=== PATIENT | male | born 1975 | race Caucasian/White ===

== ENCOUNTER 2017-10-13 00:12 | Emergency (ER) | payer OTHER ==
[2017-10-13] MEDS: IPRATROPIUM (NEB) 0.5 MG/2.5 ML AMP INH (04:14)
[2017-10-13] MEDS: ALBUTEROL 0.083% (NEB) 2.5 MG/3 ML AMP INH (04:14)
== END 2017-10-13 05:13 | disposition home or self-care (01) ==
LOC: E/R 00:12
DX: J44.9 Chronic obstructive pulmonary disease, unspecified (principal); I25.10 Atherosclerotic heart disease of native coronary artery without angina pectoris
CPT/HCPCS: 94664; 99283-25

== ENCOUNTER 2017-10-13 20:43 | Emergency (ER) | payer OTHER ==
[2017-10-14] MEDS: ALBUTEROL 0.5% (NEB) 2.5 MG/0.5 ML AMP INH (00:10)
[2017-10-14] MEDS: ALBUTEROL HFA 8 GM INHALER INH (01:46)
== END 2017-10-14 01:48 | disposition home or self-care (01) ==
LOC: E/R 20:43
DX: J45.901 Unspecified asthma with (acute) exacerbation (principal); F41.9 Anxiety disorder, unspecified; J44.9 Chronic obstructive pulmonary disease, unspecified; I25.10 Atherosclerotic heart disease of native coronary artery without angina pectoris
CPT/HCPCS: 94644; 99283-25

== ENCOUNTER 2017-10-14 12:20 | Emergency (ER) | payer OTHER ==
[2017-10-14] MEDS ORDERED: ALBUTEROL HFA 8 GM INHALER INH (15:24)
== END 2017-10-14 15:44 | disposition home or self-care (01) ==
LOC: FTE 12:20 → E/R 15:44
DX: R06.2 Wheezing (principal); J44.9 Chronic obstructive pulmonary disease, unspecified; I25.10 Atherosclerotic heart disease of native coronary artery without angina pectoris
CPT/HCPCS: 99282; Z7502

== ENCOUNTER 2017-10-14 21:58 | Emergency (ER) | payer OTHER ==
[2017-10-14] MEDS: ALBUTEROL 0.083% (NEB) 2.5 MG/3 ML AMP HHN (23:53)
== END 2017-10-15 01:30 | disposition home or self-care (01) ==
LOC: E/R 21:58
DX: F41.9 Anxiety disorder, unspecified (principal); I25.10 Atherosclerotic heart disease of native coronary artery without angina pectoris; J44.9 Chronic obstructive pulmonary disease, unspecified
CPT/HCPCS: 94664; 99283-25

== ENCOUNTER 2017-10-15 19:13 | Emergency (ER) | payer OTHER ==
[2017-10-15] MEDS: predniSONE 20 MG TAB PO (23:35)
[2017-10-15] MEDS: IPRATROPIUM (NEB) 0.5 MG/2.5 ML AMP NEB (23:53)
[2017-10-15] MEDS: LEVALBUTEROL (NEB) 1.25 MG/0.5 ML AMP INH (23:53)
[2017-10-16] MEDS: LEVALBUTEROL (NEB) 1.25 MG/0.5 ML AMP INH (01:49)
[2017-10-16] MEDS: IPRATROPIUM (NEB) 0.5 MG/2.5 ML AMP NEB (01:49)
== END 2017-10-16 02:10 | disposition home or self-care (01) ==
LOC: E/R 10-16 02:10
DX: J45.901 Unspecified asthma with (acute) exacerbation (principal); I25.10 Atherosclerotic heart disease of native coronary artery without angina pectoris
CPT/HCPCS: 94640; 94664; 99284-25

== ENCOUNTER 2017-10-16 13:32 | Emergency (ER) | payer OTHER ==
[2017-10-16] MEDS: predniSONE 20 MG TAB PO (14:41)
[2017-10-16] MEDS: LEVALBUTEROL (NEB) 1.25 MG/0.5 ML AMP HHN (14:48)
[2017-10-16] MEDS: IPRATROPIUM (NEB) 0.5 MG/2.5 ML AMP HHN (14:48)
== END 2017-10-16 15:38 | disposition home or self-care (01) ==
LOC: E/R 13:32
DX: J45.901 Unspecified asthma with (acute) exacerbation (principal); J44.9 Chronic obstructive pulmonary disease, unspecified; I25.10 Atherosclerotic heart disease of native coronary artery without angina pectoris
CPT/HCPCS: 94664; 99283-25

== ENCOUNTER 2017-10-16 21:25 | Emergency (ER) | payer OTHER ==
[2017-10-17] MEDS: DEXAMETHASONE 4 MG TAB PO (01:27)
[2017-10-17] MEDS: ALBUTEROL 0.083% (NEB) 2.5 MG/3 ML AMP HHN (01:45)
[2017-10-17] MEDS: IPRATROPIUM (NEB) 0.5 MG/2.5 ML AMP HHN (01:45)
== END 2017-10-17 02:50 | disposition home or self-care (01) ==
LOC: E/R 21:25
DX: J45.901 Unspecified asthma with (acute) exacerbation (principal); I25.10 Atherosclerotic heart disease of native coronary artery without angina pectoris
CPT/HCPCS: 94644; 99284-25

== ENCOUNTER 2017-10-17 03:48 | Emergency (ER) | payer OTHER | END 2017-10-17 05:32 | disposition home or self-care (01) | LOC: E/R 03:48 | DX: R42 Dizziness and giddiness (principal); J45.909 Unspecified asthma, uncomplicated; I25.10 Atherosclerotic heart disease of native coronary artery without angina pectoris | CPT/HCPCS: 93005; 99284-25 ==

== ENCOUNTER 2017-10-17 18:26 | Inpatient (IN) | payer OTHER ==
[2017-10-17] MEDS: METHYLPREDNISOLONE 125 MG INJ IV (19:40)
[2017-10-17 20:00] LABS: ADD MAN DIFF? NO
[2017-10-17 20:05] LABS: BASOPHILS % 0.3 % (0.0-2.0); HEMATOCRIT 45.6 % (42.0-52.0); HEMOGLOBIN 16.3 g/dl (14.0-18.0); LYMPHOCYTES # 0.6 10^3/ul (0.8-2.9); LYMPHOCYTES % 4.3 % (15.0-51.0); MEAN CORPUSCULAR HGB CONC 35.7 g/dl (32.0-37.0); MEAN PLATELET VOLUME 9.1 fl (7.4-10.4); MONOCYTE # 1.2 10^3/ul (0.3-0.9); MONOCYTES % 8.1 % (0.0-11.0); NEUTROPHIL # 12.8 10^3/ul (1.6-7.5); NEUTROPHILS % 86.5 % (39.0-77.0); PLATELET COUNT 164 10^3/UL (140-415); RED BLOOD COUNT 5.43 10^6/ul (4.70-6.10)
[2017-10-17 20:05] LABS: WHITE BLOOD COUNT 14.8 10^3/ul (4.8-10.8)
[2017-10-17] MEDS: IPRATROPIUM (NEB) 0.5 MG/2.5 ML AMP INH (20:20)
[2017-10-17] MEDS: ALBUTEROL 0.5% (NEB) 2.5 MG/0.5 ML AMP INH (20:21)
[2017-10-17 20:23] LABS: ALANINE AMINOTRANSFERASE 48 IU/L (13-69); ALBUMIN 4.8 g/dl (3.3-4.9); ALBUMIN/GLOBULIN RATIO 1.65; ALKALINE PHOSPHATASE 71 IU/L (42-121); ANION GAP 20 (8-16); ASPARTATE AMINO TRANSFERASE 25 IU/L (15-46); BILIRUBIN,INDIRECT 0.3 mg/dl (0-1.1); BILIRUBIN,TOTAL 0.3 mg/dl (0.2-1.3); BLOOD UREA NITROGEN 23 mg/dl (7-20); CALCIUM 9.8 mg/dl (8.4-10.2); CARBON DIOXIDE 24 mmol/L (21-31); CHLORIDE 104 mmol/L (97-110); CREATININE 0.87 mg/dl (0.61-1.24); GLUCOSE 139 mg/dl (70-220); LIPASE 29 U/L (23-300); POTASSIUM 3.7 mmol/L (3.5-5.1); SODIUM 144 mmol/L (135-144); TOTAL PROTEIN 7.7 g/dl (6.1-8.1)
[2017-10-17 20:38] LABS: TROPONIN-I < 0.012 ng/ml (0.00-0.12)
[2017-10-17] MEDS: MAGNESIUM SULFATE 2 GM/50 ML 50 ML IVPB (21:33)
[2017-10-17] MEDS: SOD CHLORIDE 0.9% 1,000 ML IV (21:34)
[2017-10-17] MEDS: ASPIRIN 81 MG TAB PO (21:37)
[2017-10-17] MEDS ORDERED: morphine 2 MG INJ IV (23:30)
[2017-10-17] MEDS ORDERED: IPRATROPIUM (NEB) 0.5 MG/2.5 ML AMP NEB (23:30)
[2017-10-17] MEDS ORDERED: NACL 0.9% 3 ML SYG IV (23:30)
[2017-10-17] MEDS ORDERED: ACETAMINOPHEN 325 MG TAB PO (23:30)
[2017-10-17] MEDS ORDERED: NON-FORMULARY/PATIENT OWN MED (Salmeterol Xinaf-Fluticasone* (Advair HFA*) 2 INH) IH (23:30)
[2017-10-17] MEDS ORDERED: LORAZEPAM 0.5 MG TAB PO (23:30)
[2017-10-17] MEDS ORDERED: LEVALBUTEROL (NEB) 0.63 MG/3 ML AMP HHN (23:30)
[2017-10-17] MEDS ORDERED: ONDANSETRON 4 MG INJ IV (23:30)
[2017-10-18] MEDS: METHYLPREDNISOLONE 125 MG INJ IV ×2 (05:28→13:55)
[2017-10-18] MEDS: SALMETEROL/FLUTICASONE 250/50 INHA INH (08:26)
[2017-10-18] MEDS: ENOXAPARIN 40 MG/0.4 ML SYG SC (08:28)
[2017-10-18 08:38] LABS: ADD MAN DIFF? NO
[2017-10-18 08:42] LABS: ABNORMAL IP MESSAGE 1; BASOPHILS % 0.1 % (0.0-2.0); HEMATOCRIT 42.3 % (42.0-52.0); HEMOGLOBIN 14.9 g/dl (14.0-18.0); LYMPHOCYTES # 0.4 10^3/ul (0.8-2.9); LYMPHOCYTES % 4.1 % (15.0-51.0); MEAN CORPUSCULAR HEMOGLOBIN 30.6 pg (29.0-33.0); MEAN CORPUSCULAR HGB CONC 35.2 g/dl (32.0-37.0); MEAN CORPUSCULAR VOLUME 86.9 fl (82.0-101.0); MEAN PLATELET VOLUME 9.4 fl (7.4-10.4); MONOCYTE # 0.1 10^3/ul (0.3-0.9); NEUTROPHIL # 9.4 10^3/ul (1.6-7.5); NEUTROPHILS % 93.9 % (39.0-77.0); PLATELET COUNT 141 10^3/UL (140-415); POSITIVE DIFF @See below; RED BLOOD COUNT 4.87 10^6/ul (4.70-6.10); RED CELL DISTRIBUTION WIDTH 13.2 % (11.5-14.5)
[2017-10-18 08:42] LABS: WHITE BLOOD COUNT 10.1 10^3/ul (4.8-10.8)
[2017-10-18 09:01] LABS: ALANINE AMINOTRANSFERASE 43 IU/L (13-69); ALBUMIN/GLOBULIN RATIO 1.42; ALKALINE PHOSPHATASE 51 IU/L (42-121); ANION GAP 19 (8-16); ASPARTATE AMINO TRANSFERASE 22 IU/L (15-46); BILIRUBIN,INDIRECT 0.2 mg/dl (0-1.1); BILIRUBIN,TOTAL 0.2 mg/dl (0.2-1.3); BLOOD UREA NITROGEN 16 mg/dl (7-20); CALCIUM 8.9 mg/dl (8.4-10.2); CARBON DIOXIDE 24 mmol/L (21-31); CHLORIDE 104 mmol/L (97-110); CREATININE 0.75 mg/dl (0.61-1.24); GLUCOSE 186 mg/dl (70-220); MAGNESIUM 2.2 mg/dl (1.7-2.5); POTASSIUM 3.8 mmol/L (3.5-5.1); SODIUM 143 mmol/L (135-144); TOTAL PROTEIN 6.8 g/dl (6.1-8.1)
== END 2017-10-18 14:51 | disposition home or self-care (01) | DRG 203 ==
LOC: E/R 18:26 → MS4 20:11
DX: J45.901 Unspecified asthma with (acute) exacerbation (principal); F79 Unspecified intellectual disabilities
CPT/HCPCS: 36415; 71045; 80053; 83690; 83735; 84484; 85025; 87400; 93005; 94644; 96374; 96375; 99291-25

== ENCOUNTER 2017-11-17 19:45 | Emergency (ER) | payer OTHER ==
[2017-11-17] MEDS: ALBUTEROL 0.083% (NEB) 2.5 MG/3 ML AMP NEB (21:56)
[2017-11-17] MEDS: IPRATROPIUM (NEB) 0.5 MG/2.5 ML AMP NEB (21:56)
[2017-11-17] MEDS: DEXAMETHASONE 10 MG/ML 1 ML INJ IM (22:15)
[2017-11-17] MEDS: ALBUTEROL HFA 8 GM INHALER INH (22:39)
== END 2017-11-17 22:40 | disposition home or self-care (01) ==
LOC: E/R 22:40
DX: J45.41 Moderate persistent asthma with (acute) exacerbation (principal); I25.10 Atherosclerotic heart disease of native coronary artery without angina pectoris
CPT/HCPCS: 94664; 96372; 99284-25

== ENCOUNTER 2017-11-23 20:19 | Emergency (ER) | payer OTHER ==
[2017-11-23] MEDS: LEVALBUTEROL (NEB) 1.25 MG/0.5 ML AMP INH (23:43)
[2017-11-23] MEDS: IPRATROPIUM (NEB) 0.5 MG/2.5 ML AMP INH (23:43)
[2017-11-23] MEDS: METHYLPREDNISOLONE 125 MG INJ IV (23:48)
[2017-11-23] MEDS: SOD CHLORIDE 0.9% 1,000 ML IV (23:48)
== END 2017-11-24 01:13 | disposition home or self-care (01) ==
LOC: E/R 11-24 01:13
DX: J45.901 Unspecified asthma with (acute) exacerbation (principal); I25.10 Atherosclerotic heart disease of native coronary artery without angina pectoris; F88 Other disorders of psychological development
CPT/HCPCS: 94644; 96374; 99284-25

== ENCOUNTER 2017-11-26 21:33 | Emergency (ER) | payer OTHER ==
[2017-11-26] MEDS: IPRATROPIUM (NEB) 0.5 MG/2.5 ML AMP NEB (22:50)
[2017-11-26] MEDS: ALBUTEROL 0.083% (NEB) 2.5 MG/3 ML AMP NEB (22:50)
== END 2017-11-27 00:27 | disposition home or self-care (01) ==
LOC: E/R 11-27 00:27
DX: J45.901 Unspecified asthma with (acute) exacerbation (principal); I25.10 Atherosclerotic heart disease of native coronary artery without angina pectoris
CPT/HCPCS: 94664; 99283-25

== ENCOUNTER 2017-11-28 22:24 | Emergency (ER) | payer OTHER ==
[2017-11-29] MEDS: ALBUTEROL 0.083% (NEB) 2.5 MG/3 ML AMP NEB (01:54)
[2017-11-29] MEDS: IPRATROPIUM (NEB) 0.5 MG/2.5 ML AMP NEB (01:55)
== END 2017-11-29 02:52 | disposition home or self-care (01) ==
LOC: E/R 22:24
DX: J45.901 Unspecified asthma with (acute) exacerbation (principal); F79 Unspecified intellectual disabilities; I25.10 Atherosclerotic heart disease of native coronary artery without angina pectoris
CPT/HCPCS: 94664; 99284-25

== ENCOUNTER 2017-11-29 23:39 | Emergency (ER) | payer OTHER ==
[2017-11-30] MEDS: ALBUTEROL 0.5% (NEB) 2.5 MG/0.5 ML AMP INH (01:44)
[2017-11-30] MEDS ORDERED: ALBUTEROL HFA 8 GM INHALER INH (05:00)
== END 2017-11-30 02:57 | disposition home or self-care (01) ==
LOC: E/R 23:39
DX: J45.41 Moderate persistent asthma with (acute) exacerbation (principal); I25.10 Atherosclerotic heart disease of native coronary artery without angina pectoris
CPT/HCPCS: 94644; 99283

== ENCOUNTER 2017-12-01 21:13 | Emergency (ER) | payer OTHER ==
[2017-12-02] MEDS: ALBUTEROL 0.083% (NEB) 2.5 MG/3 ML AMP HHN (00:11)
[2017-12-02] MEDS: IPRATROPIUM (NEB) 0.5 MG/2.5 ML AMP HHN (00:11)
[2017-12-02] MEDS: DEXAMETHASONE 10 MG/ML 1 ML INJ PO (00:50)
== END 2017-12-02 01:05 | disposition home or self-care (01) ==
LOC: E/R 21:13
DX: J45.901 Unspecified asthma with (acute) exacerbation (principal); I25.10 Atherosclerotic heart disease of native coronary artery without angina pectoris
CPT/HCPCS: 94664; 99283-25

== ENCOUNTER 2017-12-02 21:48 | Emergency (ER) | payer OTHER ==
[2017-12-02] MEDS: ALBUTEROL 0.5% (NEB) 2.5 MG/0.5 ML AMP INH (22:33)
== END 2017-12-02 23:44 | disposition home or self-care (01) ==
LOC: E/R 21:48
DX: J45.901 Unspecified asthma with (acute) exacerbation (principal); I25.10 Atherosclerotic heart disease of native coronary artery without angina pectoris
CPT/HCPCS: 94664; 99283-25

== ENCOUNTER 2017-12-03 21:36 | Emergency (ER) | payer OTHER ==
[2017-12-03] MEDS: IPRATROPIUM (NEB) 0.5 MG/2.5 ML AMP NEB (22:45)
[2017-12-03] MEDS: ALBUTEROL 0.083% (NEB) 2.5 MG/3 ML AMP NEB (22:45)
[2017-12-04] MEDS: ALBUTEROL HFA 8 GM INHALER INH (00:32)
== END 2017-12-04 00:33 | disposition home or self-care (01) ==
LOC: E/R 12-04 00:33
DX: R06.02 Shortness of breath (principal); I25.10 Atherosclerotic heart disease of native coronary artery without angina pectoris; J45.909 Unspecified asthma, uncomplicated
CPT/HCPCS: 94664; 99284-25

== ENCOUNTER 2017-12-04 22:11 | Emergency (ER) | payer OTHER ==
[2017-12-04] MEDS: ALBUTEROL 0.083% (NEB) 2.5 MG/3 ML AMP NEB (22:52)
[2017-12-04] MEDS: IPRATROPIUM (NEB) 0.5 MG/2.5 ML AMP NEB (22:52)
== END 2017-12-05 00:19 | disposition home or self-care (01) ==
LOC: E/R 12-05 00:19
DX: J45.901 Unspecified asthma with (acute) exacerbation (principal)
CPT/HCPCS: 94664; 99283-25

== ENCOUNTER 2017-12-05 22:03 | Emergency (ER) | payer OTHER ==
[2017-12-05] MEDS: ALBUTEROL 0.083% (NEB) 2.5 MG/3 ML AMP NEB (22:45)
[2017-12-05] MEDS: IPRATROPIUM (NEB) 0.5 MG/2.5 ML AMP NEB (22:45)
== END 2017-12-05 23:18 | disposition home or self-care (01) ==
LOC: E/R 22:03
DX: J45.901 Unspecified asthma with (acute) exacerbation (principal); R40.2252 Coma scale, best verbal response, oriented, at arrival to emergency department
CPT/HCPCS: 94664; 99283-25

== ENCOUNTER 2017-12-06 15:41 | Emergency (ER) | payer OTHER ==
[2017-12-06] MEDS: predniSONE 20 MG TAB PO (21:07)
[2017-12-06] MEDS: ALBUTEROL 0.5% (NEB) 2.5 MG/0.5 ML AMP INH (21:19)
== END 2017-12-06 22:45 | disposition home or self-care (01) ==
LOC: E/R 15:41
DX: J45.21 Mild intermittent asthma with (acute) exacerbation (principal)
CPT/HCPCS: 94644; 99284-25

== ENCOUNTER 2017-12-07 21:25 | Emergency (ER) | payer OTHER ==
[2017-12-07] MEDS: SOD CHLORIDE 0.9% 1,000 ML IV (23:27)
[2017-12-07] MEDS: METHYLPREDNISOLONE 125 MG INJ IV (23:27)
[2017-12-07] MEDS: LEVALBUTEROL (NEB) 1.25 MG/0.5 ML AMP INH (23:37)
[2017-12-07] MEDS: IPRATROPIUM (NEB) 0.5 MG/2.5 ML AMP INH (23:37)
== END 2017-12-08 02:30 | disposition home or self-care (01) ==
LOC: E/R 12-08 02:30
DX: J45.901 Unspecified asthma with (acute) exacerbation (principal)
CPT/HCPCS: 94644; 96374; 99284-25

== ENCOUNTER 2017-12-12 11:02 | Emergency (ER) | payer OTHER ==
[2017-12-12] MEDS ORDERED: ALBUTEROL 0.083% (NEB) 2.5 MG/3 ML AMP HHN (11:36)
== END 2017-12-12 14:11 | disposition home or self-care (01) ==
LOC: E/R 11:02
DX: J45.901 Unspecified asthma with (acute) exacerbation (principal)
CPT/HCPCS: 94664; 99283

== ENCOUNTER 2017-12-12 22:07 | Emergency (ER) | payer OTHER ==
[2017-12-13] MEDS: IPRATROPIUM (NEB) 0.5 MG/2.5 ML AMP NEB (02:46)
[2017-12-13] MEDS: ALBUTEROL 0.083% (NEB) 2.5 MG/3 ML AMP NEB (02:47)
[2017-12-13] MEDS: ALBUTEROL HFA 8 GM INHALER INH (04:01)
== END 2017-12-13 04:02 | disposition home or self-care (01) ==
LOC: E/R 22:07
DX: J45.31 Mild persistent asthma with (acute) exacerbation (principal)
CPT/HCPCS: 94664; 99284-25

== ENCOUNTER 2017-12-13 23:37 | Emergency (ER) | payer OTHER ==
[2017-12-14] MEDS: ALBUTEROL 0.083% (NEB) 2.5 MG/3 ML AMP HHN (03:20)
== END 2017-12-14 03:52 | disposition home or self-care (01) ==
LOC: E/R 23:37
DX: J45.901 Unspecified asthma with (acute) exacerbation (principal)
CPT/HCPCS: 94664; 99283-25

== ENCOUNTER 2017-12-15 01:24 | Emergency (ER) | payer OTHER ==
[2017-12-15] MEDS: ALBUTEROL 0.083% (NEB) 2.5 MG/3 ML AMP NEB (01:46)
== END 2017-12-15 02:08 | disposition home or self-care (01) ==
LOC: E/R 01:24
DX: J45.901 Unspecified asthma with (acute) exacerbation (principal)
CPT/HCPCS: 94664; 99283-25

== ENCOUNTER 2017-12-15 20:34 | Emergency (ER) | payer OTHER ==
[2017-12-15] MEDS: ALBUTEROL 0.083% (NEB) 2.5 MG/3 ML AMP NEB (21:16)
== END 2017-12-15 21:45 | disposition home or self-care (01) ==
LOC: E/R 20:34
DX: J45.901 Unspecified asthma with (acute) exacerbation (principal)
CPT/HCPCS: 94664; 99283-25

== ENCOUNTER 2017-12-16 22:32 | Emergency (ER) | payer OTHER ==
[2017-12-16] MEDS: IPRATROPIUM (NEB) 0.5 MG/2.5 ML AMP INH (23:53)
[2017-12-16] MEDS: ALBUTEROL 0.5% (NEB) 2.5 MG/0.5 ML AMP INH (23:53)
[2017-12-17] MEDS ORDERED: DEXAMETHASONE 10 MG/ML 1 ML INJ IV
[2017-12-17] MEDS: DEXAMETHASONE 4 MG TAB PO (00:24)
== END 2017-12-17 01:00 | disposition home or self-care (01) ==
LOC: E/R 22:32
DX: J45.901 Unspecified asthma with (acute) exacerbation (principal); J44.9 Chronic obstructive pulmonary disease, unspecified
CPT/HCPCS: 94644; 99283-25

== ENCOUNTER 2017-12-17 13:53 | Emergency (ER) | payer OTHER ==
[2017-12-17] MEDS: IPRATROPIUM (NEB) 0.5 MG/2.5 ML AMP NEB (14:56)
[2017-12-17] MEDS: ALBUTEROL 0.083% (NEB) 2.5 MG/3 ML AMP NEB (14:56)
== END 2017-12-17 15:37 | disposition home or self-care (01) ==
LOC: E/R 13:53
DX: R06.02 Shortness of breath (principal); J45.901 Unspecified asthma with (acute) exacerbation
CPT/HCPCS: 94664; 99283-25

== ENCOUNTER 2017-12-18 01:19 | Emergency (ER) | payer OTHER ==
[2017-12-18] MEDS: IPRATROPIUM (NEB) 0.5 MG/2.5 ML AMP NEB (03:00)
[2017-12-18] MEDS: ALBUTEROL 0.083% (NEB) 2.5 MG/3 ML AMP NEB (03:00)
== END 2017-12-18 03:30 | disposition home or self-care (01) ==
LOC: E/R 01:19
DX: J45.901 Unspecified asthma with (acute) exacerbation (principal)
CPT/HCPCS: 94664; 99283-25

== ENCOUNTER 2017-12-18 14:13 | Emergency (ER) | payer OTHER ==
[2017-12-18] MEDS: LEVALBUTEROL (NEB) 1.25 MG/0.5 ML AMP INH (18:36)
[2017-12-18] MEDS: IPRATROPIUM (NEB) 0.5 MG/2.5 ML AMP INH (18:36)
[2017-12-18] MEDS: METHYLPREDNISOLONE 125 MG INJ IV (19:11)
[2017-12-18] MEDS: SOD CHLORIDE 0.9% 1,000 ML IV (19:13)
== END 2017-12-18 20:12 | disposition home or self-care (01) ==
LOC: E/R 14:13
DX: J45.901 Unspecified asthma with (acute) exacerbation (principal)
CPT/HCPCS: 94644; 96374; 99284-25

== ENCOUNTER → 2017-12-19 | Emergency (ER) | payer OTHER ==
[2017-12-19] MEDS: IPRATROPIUM (NEB) 0.5 MG/2.5 ML AMP NEB (23:45)
[2017-12-19] MEDS: ALBUTEROL 0.083% (NEB) 2.5 MG/3 ML AMP NEB (23:45)
[2017-12-20] MEDS: ALBUTEROL HFA 8 GM INHALER INH (01:00)
== END | disposition home or self-care (01) ==
LOC: E/R 21:25
DX: J45.901 Unspecified asthma with (acute) exacerbation (principal)
CPT/HCPCS: 94664; 99283-25

== ENCOUNTER 2017-12-20 22:39 | Emergency (ER) | payer OTHER ==
[2017-12-20] MEDS: ALBUTEROL 0.083% (NEB) 2.5 MG/3 ML AMP HHN (00:05)
[2017-12-21] MEDS: IPRATROPIUM (NEB) 0.5 MG/2.5 ML AMP HHN (00:05)
[2017-12-21] MEDS: DEXAMETHASONE 4 MG TAB PO (01:06)
== END 2017-12-21 01:08 | disposition home or self-care (01) ==
LOC: E/R 12-21 01:08
DX: J45.901 Unspecified asthma with (acute) exacerbation (principal)
CPT/HCPCS: 94664; 99284-25

== ENCOUNTER 2017-12-29 17:48 | Emergency (ER) | payer OTHER ==
[2017-12-29] MEDS: IPRATROPIUM (NEB) 0.5 MG/2.5 ML AMP HHN (19:43)
[2017-12-29] MEDS: ALBUTEROL 0.083% (NEB) 2.5 MG/3 ML AMP HHN (19:43)
[2017-12-29] MEDS: DEXAMETHASONE 4 MG TAB PO (20:13)
== END 2017-12-29 20:33 | disposition home or self-care (01) ==
LOC: E/R 17:48
DX: J45.901 Unspecified asthma with (acute) exacerbation (principal)
CPT/HCPCS: 94664; 99283-25

== ENCOUNTER 2017-12-30 21:43 | Emergency (ER) | payer OTHER | END 2017-12-31 00:35 | disposition home or self-care (01) | LOC: E/R 12-31 00:35 | DX: J45.909 Unspecified asthma, uncomplicated (principal); Z73.2 Lack of relaxation and leisure | CPT/HCPCS: 99282; Z7502 ==

== ENCOUNTER 2017-12-31 04:54 | Emergency (ER) | payer OTHER ==
[2017-12-31] MEDS: IPRATROPIUM (NEB) 0.5 MG/2.5 ML AMP HHN (06:10)
[2017-12-31] MEDS: ALBUTEROL 0.083% (NEB) 2.5 MG/3 ML AMP HHN (06:10)
[2017-12-31] MEDS: DEXAMETHASONE 4 MG TAB PO (06:25)
[2017-12-31] MEDS ORDERED: ALBUTEROL HFA 8 GM INHALER INH (09:00)
== END 2017-12-31 07:32 | disposition home or self-care (01) ==
LOC: E/R 04:54
DX: J45.901 Unspecified asthma with (acute) exacerbation (principal)
CPT/HCPCS: 94664; 99283-25

== ENCOUNTER 2018-01-01 20:57 | Emergency (ER) | payer OTHER ==
[2018-01-01] MEDS: IPRATROPIUM (NEB) 0.5 MG/2.5 ML AMP NEB (22:55)
[2018-01-01] MEDS: ALBUTEROL 0.083% (NEB) 2.5 MG/3 ML AMP NEB (22:56)
== END 2018-01-01 23:32 | disposition home or self-care (01) ==
LOC: E/R 20:57
DX: J45.31 Mild persistent asthma with (acute) exacerbation (principal)
CPT/HCPCS: 94664; 99284-25

== ENCOUNTER 2018-01-02 21:10 | Emergency (ER) | payer OTHER ==
[2018-01-03] MEDS: IPRATROPIUM (NEB) 0.5 MG/2.5 ML AMP NEB (01:52)
[2018-01-03] MEDS: ALBUTEROL 0.083% (NEB) 2.5 MG/3 ML AMP NEB (01:52)
[2018-01-03] MEDS ORDERED: ALBUTEROL HFA 8 GM INHALER INH (05:00)
== END 2018-01-03 02:15 | disposition home or self-care (01) ==
LOC: E/R 21:10
DX: J45.901 Unspecified asthma with (acute) exacerbation (principal)
CPT/HCPCS: 94664; 99283-25

== ENCOUNTER 2018-01-03 23:19 | Emergency (ER) | payer OTHER ==
[2018-01-03] MEDS: ALBUTEROL 0.083% (NEB) 2.5 MG/3 ML AMP HHN (23:57)
== END 2018-01-04 00:05 | disposition home or self-care (01) ==
LOC: E/R 01-04 00:05
DX: R06.02 Shortness of breath (principal); J45.901 Unspecified asthma with (acute) exacerbation
CPT/HCPCS: 94664; 99283-25

== ENCOUNTER 2018-01-12 23:11 | Emergency (ER) | payer OTHER ==
[2018-01-13] MEDS: IPRATROPIUM (NEB) 0.5 MG/2.5 ML AMP NEB (00:22)
[2018-01-13] MEDS: predniSONE 20 MG TAB PO (00:23)
[2018-01-13] MEDS: LEVALBUTEROL (NEB) 1.25 MG/0.5 ML AMP INH (00:23)
== END 2018-01-12 23:41 | disposition home or self-care (01) ==
LOC: E/R 23:11
DX: J45.901 Unspecified asthma with (acute) exacerbation (principal)
CPT/HCPCS: 99284-25; Z7502

== ENCOUNTER → 2018-01-12 | Emergency (ER) | payer SELFPAY, OTHER | END | disposition left against medical advice (07) | LOC: E/R 01:48 | DX: Z53.21 Procedure and treatment not carried out due to patient leaving prior to being seen by health care provider (principal) ==

== ENCOUNTER 2018-01-15 23:45 | Emergency (ER) | payer OTHER ==
[2018-01-16] MEDS: ALBUTEROL 0.083% (NEB) 2.5 MG/3 ML AMP NEB (03:49)
[2018-01-16] MEDS: IPRATROPIUM (NEB) 0.5 MG/2.5 ML AMP NEB (03:49)
[2018-01-16] MEDS: ALBUTEROL HFA 8 GM INHALER INH (04:31)
== END 2018-01-16 04:39 | disposition home or self-care (01) ==
LOC: E/R 23:45
DX: J45.901 Unspecified asthma with (acute) exacerbation (principal)
CPT/HCPCS: 94664; 99284-25

== ENCOUNTER 2018-01-17 00:24 | Emergency (ER) | payer OTHER ==
[2018-01-17] MEDS: ALBUTEROL 0.083% (NEB) 2.5 MG/3 ML AMP NEB (03:30)
[2018-01-17] MEDS: IPRATROPIUM (NEB) 0.5 MG/2.5 ML AMP NEB (03:30)
== END 2018-01-17 04:11 | disposition home or self-care (01) ==
LOC: FTE 00:24 → E/R 04:11
DX: J45.901 Unspecified asthma with (acute) exacerbation (principal)
CPT/HCPCS: 94664; 99283-25

== ENCOUNTER 2018-01-21 22:27 | Emergency (ER) | payer OTHER ==
[2018-01-21] MEDS: IPRATROPIUM (NEB) 0.5 MG/2.5 ML AMP NEB (22:46)
[2018-01-21] MEDS: ALBUTEROL 0.083% (NEB) 2.5 MG/3 ML AMP NEB (22:46)
[2018-01-21] MEDS: ALBUTEROL HFA 8 GM INHALER INH (23:23)
[2018-01-22] MEDS ORDERED: ALBUTEROL HFA 8 GM INHALER INH (01:00)
== END 2018-01-21 23:26 | disposition home or self-care (01) ==
LOC: E/R 22:27
DX: J45.51 Severe persistent asthma with (acute) exacerbation (principal); R40.2142 Coma scale, eyes open, spontaneous, at arrival to emergency department; R40.2252 Coma scale, best verbal response, oriented, at arrival to emergency department; R40.2362 Coma scale, best motor response, obeys commands, at arrival to emergency department
CPT/HCPCS: 94664; 99283-25

== ENCOUNTER 2018-01-27 11:20 | Emergency (ER) | payer OTHER ==
[2018-01-27] MEDS: ALBUTEROL 0.083% (NEB) 2.5 MG/3 ML AMP HHN (11:46)
[2018-01-27] MEDS: IPRATROPIUM (NEB) 0.5 MG/2.5 ML AMP HHN (11:46)
== END 2018-01-27 12:33 | disposition home or self-care (01) ==
LOC: FTE 12:33
DX: J45.901 Unspecified asthma with (acute) exacerbation (principal)
CPT/HCPCS: 93005; 94664; 99283-25

== ENCOUNTER 2018-01-28 00:22 | Emergency (ER) | payer OTHER ==
[2018-01-28] MEDS: DEXAMETHASONE 10 MG/ML 1 ML INJ IV (01:43)
[2018-01-28] MEDS: ALBUTEROL 0.5% (NEB) 2.5 MG/0.5 ML AMP INH (01:44)
[2018-01-28] MEDS: IPRATROPIUM (NEB) 0.5 MG/2.5 ML AMP INH (01:44)
[2018-01-28] MEDS ORDERED: ALBUTEROL HFA 8 GM INHALER INH (02:00)
== END 2018-01-28 04:19 | disposition home or self-care (01) ==
LOC: E/R 00:22
DX: J45.21 Mild intermittent asthma with (acute) exacerbation (principal)
CPT/HCPCS: 94644; 96374; 99284-25

== ENCOUNTER 2018-02-03 12:45 | Emergency (ER) | payer OTHER ==
[2018-02-03] MEDS: ALBUTEROL 0.083% (NEB) 2.5 MG/3 ML AMP NEB (13:39)
[2018-02-03] MEDS: IPRATROPIUM (NEB) 0.5 MG/2.5 ML AMP NEB (13:39)
== END 2018-02-03 14:06 | disposition home or self-care (01) ==
LOC: FTE 12:45
DX: J45.901 Unspecified asthma with (acute) exacerbation (principal)
CPT/HCPCS: 94664; 99283-25

== ENCOUNTER 2018-02-04 05:11 | Emergency (ER) | payer OTHER ==
[2018-02-04] MEDS ORDERED: DEXAMETHASONE 4 MG TAB PO (05:30)
[2018-02-04] MEDS: IPRATROPIUM (NEB) 0.5 MG/2.5 ML AMP HHN (05:32)
[2018-02-04] MEDS: ALBUTEROL 0.083% (NEB) 2.5 MG/3 ML AMP HHN (05:32)
== END 2018-02-04 06:23 | disposition home or self-care (01) ==
LOC: E/R 05:11
DX: J45.901 Unspecified asthma with (acute) exacerbation (principal)
CPT/HCPCS: 94664; 99283-25

== ENCOUNTER 2018-02-04 19:43 | Emergency (ER) | payer OTHER ==
[2018-02-04] MEDS: IPRATROPIUM (NEB) 0.5 MG/2.5 ML AMP NEB (20:15)
[2018-02-04] MEDS: ALBUTEROL 0.083% (NEB) 2.5 MG/3 ML AMP NEB (20:15)
[2018-02-04] MEDS: ALBUTEROL HFA 8 GM INHALER INH (21:05)
== END 2018-02-04 21:08 | disposition home or self-care (01) ==
LOC: E/R 19:43
DX: R06.2 Wheezing (principal)
CPT/HCPCS: 94664; 99284-25

== ENCOUNTER 2018-02-05 23:50 | Emergency (ER) | payer OTHER ==
[2018-02-06] MEDS: ALBUTEROL 0.083% (NEB) 2.5 MG/3 ML AMP HHN (03:39)
[2018-02-06] MEDS: IPRATROPIUM (NEB) 0.5 MG/2.5 ML AMP HHN (03:40)
== END 2018-02-06 05:04 | disposition home or self-care (01) ==
LOC: E/R 23:50
DX: J45.901 Unspecified asthma with (acute) exacerbation (principal)
CPT/HCPCS: 94664; 99284-25

== ENCOUNTER 2018-02-06 22:03 | Emergency (ER) | payer OTHER ==
[2018-02-06] MEDS: ALBUTEROL 0.083% (NEB) 2.5 MG/3 ML AMP NEB (23:39)
[2018-02-06] MEDS: IPRATROPIUM (NEB) 0.5 MG/2.5 ML AMP NEB (23:39)
== END 2018-02-07 00:56 | disposition home or self-care (01) ==
LOC: E/R 22:03
DX: J45.901 Unspecified asthma with (acute) exacerbation (principal); R40.2142 Coma scale, eyes open, spontaneous, at arrival to emergency department; R40.2252 Coma scale, best verbal response, oriented, at arrival to emergency department; R40.2362 Coma scale, best motor response, obeys commands, at arrival to emergency department
CPT/HCPCS: 94664; 99283-25

== ENCOUNTER 2018-02-07 23:13 | Emergency (ER) | payer OTHER ==
[2018-02-07] MEDS: IPRATROPIUM (NEB) 0.5 MG/2.5 ML AMP NEB (23:47)
[2018-02-07] MEDS: LEVALBUTEROL (NEB) 1.25 MG/0.5 ML AMP INH (23:47)
[2018-02-08] MEDS: predniSONE 50 MG TAB PO (00:08)
== END 2018-02-08 00:16 | disposition home or self-care (01) ==
LOC: E/R 02-08 00:16
DX: J45.901 Unspecified asthma with (acute) exacerbation (principal); R40.2142 Coma scale, eyes open, spontaneous, at arrival to emergency department; R40.2252 Coma scale, best verbal response, oriented, at arrival to emergency department; R40.2362 Coma scale, best motor response, obeys commands, at arrival to emergency department
CPT/HCPCS: 94664; 99284-25

== ENCOUNTER 2018-02-10 23:27 | Emergency (ER) | payer OTHER ==
[2018-02-11] MEDS: ALBUTEROL 0.083% (NEB) 2.5 MG/3 ML AMP HHN (00:38)
== END 2018-02-11 02:27 | disposition home or self-care (01) ==
LOC: E/R 23:27
DX: J45.901 Unspecified asthma with (acute) exacerbation (principal)
CPT/HCPCS: 94664; 99284-25

== ENCOUNTER 2018-02-11 22:36 | Emergency (ER) | payer OTHER ==
[2018-02-11] MEDS: DEXAMETHASONE 4 MG TAB PO (23:17)
[2018-02-11] MEDS: ALBUTEROL 0.083% (NEB) 2.5 MG/3 ML AMP HHN (23:36)
[2018-02-11] MEDS: IPRATROPIUM (NEB) 0.5 MG/2.5 ML AMP HHN (23:37)
== END 2018-02-12 00:31 | disposition home or self-care (01) ==
LOC: E/R 02-12 00:31
DX: J45.901 Unspecified asthma with (acute) exacerbation (principal)
CPT/HCPCS: 94664; 99284-25

== ENCOUNTER 2018-02-12 19:11 | Emergency (ER) | payer OTHER ==
[2018-02-12] MEDS: ALBUTEROL 0.083% (NEB) 2.5 MG/3 ML AMP HHN (20:10)
== END 2018-02-12 20:37 | disposition home or self-care (01) ==
LOC: E/R 19:11
DX: J45.901 Unspecified asthma with (acute) exacerbation (principal); R40.2252 Coma scale, best verbal response, oriented, at arrival to emergency department; R40.2142 Coma scale, eyes open, spontaneous, at arrival to emergency department; R40.2362 Coma scale, best motor response, obeys commands, at arrival to emergency department
CPT/HCPCS: 94664; 99283-25

== ENCOUNTER 2018-03-09 23:39 | Emergency (ER) | payer OTHER ==
[2018-03-10] MEDS: ALBUTEROL 0.083% (NEB) 2.5 MG/3 ML AMP HHN (04:00)
[2018-03-10] MEDS: IPRATROPIUM (NEB) 0.5 MG/2.5 ML AMP HHN (04:00)
[2018-03-10] MEDS: DEXAMETHASONE 4 MG TAB PO (05:22)
== END 2018-03-10 05:05 | disposition home or self-care (01) ==
LOC: E/R 23:39
DX: J45.901 Unspecified asthma with (acute) exacerbation (principal)
CPT/HCPCS: 94644; 99284-25

== ENCOUNTER 2018-03-11 00:28 | Emergency (ER) | payer OTHER ==
[2018-03-11] MEDS: ALBUTEROL 0.083% (NEB) 2.5 MG/3 ML AMP HHN (01:03)
== END 2018-03-11 01:30 | disposition home or self-care (01) ==
LOC: E/R 00:28
DX: J45.901 Unspecified asthma with (acute) exacerbation (principal)
CPT/HCPCS: 94664; 99283-25

== ENCOUNTER 2018-03-23 22:39 | Emergency (ER) | payer OTHER | END 2018-03-24 01:09 | disposition home or self-care (01) | LOC: E/R 22:39 | DX: J45.901 Unspecified asthma with (acute) exacerbation (principal); R40.2142 Coma scale, eyes open, spontaneous, at arrival to emergency department; R40.2252 Coma scale, best verbal response, oriented, at arrival to emergency department; R40.2362 Coma scale, best motor response, obeys commands, at arrival to emergency department; Z73.2 Lack of relaxation and leisure | CPT/HCPCS: 99283; Z7502 ==

== ENCOUNTER 2018-03-24 22:20 | Emergency (ER) | payer OTHER ==
[2018-03-24] MEDS: ALBUTEROL 0.5% (NEB) 2.5 MG/0.5 ML AMP INH (23:02)
[2018-03-24] MEDS: predniSONE 20 MG TAB PO (23:32)
== END 2018-03-24 23:50 | disposition home or self-care (01) ==
LOC: E/R 22:20
DX: J45.901 Unspecified asthma with (acute) exacerbation (principal)
CPT/HCPCS: 94644; 99283-25

== ENCOUNTER 2018-03-25 15:40 | Emergency (ER) | payer OTHER | END 2018-03-25 16:00 | disposition home or self-care (01) | LOC: E/R 15:40 | DX: Z76.0 Encounter for issue of repeat prescription (principal); J45.909 Unspecified asthma, uncomplicated; Z02.89 Encounter for other administrative examinations | CPT/HCPCS: 99281; Z7502 ==

== ENCOUNTER 2018-03-25 22:26 | Emergency (ER) | payer OTHER ==
[2018-03-25] MEDS: IPRATROPIUM (NEB) 0.5 MG/2.5 ML AMP NEB (23:38)
[2018-03-25] MEDS: ALBUTEROL 0.083% (NEB) 2.5 MG/3 ML AMP NEB (23:38)
== END 2018-03-26 00:15 | disposition home or self-care (01) ==
LOC: E/R 03-26 00:15
DX: J45.901 Unspecified asthma with (acute) exacerbation (principal)
CPT/HCPCS: 94664; 99283-25

== ENCOUNTER 2018-03-26 22:08 | Emergency (ER) | payer OTHER ==
[2018-03-26] MEDS: ALBUTEROL 0.083% (NEB) 2.5 MG/3 ML AMP NEB (23:03)
[2018-03-26] MEDS: IPRATROPIUM (NEB) 0.5 MG/2.5 ML AMP NEB (23:03)
== END 2018-03-27 00:43 | disposition home or self-care (01) ==
LOC: E/R 03-27 00:43
DX: J45.901 Unspecified asthma with (acute) exacerbation (principal)
CPT/HCPCS: 94664; 99283-25

== ENCOUNTER 2018-03-27 11:20 | Emergency (ER) | payer OTHER | END 2018-03-27 12:02 | disposition home or self-care (01) | LOC: E/R 11:20 | DX: Z00.00 Encounter for general adult medical examination without abnormal findings (principal); J45.901 Unspecified asthma with (acute) exacerbation | CPT/HCPCS: 99282; Z7502 ==

== ENCOUNTER 2018-03-27 22:18 | Emergency (ER) | payer OTHER ==
[2018-03-27] MEDS: IPRATROPIUM (NEB) 0.5 MG/2.5 ML AMP NEB (23:01)
[2018-03-27] MEDS: ALBUTEROL 0.083% (NEB) 2.5 MG/3 ML AMP NEB (23:01)
== END 2018-03-27 23:45 | disposition home or self-care (01) ==
LOC: E/R 22:18
DX: J45.901 Unspecified asthma with (acute) exacerbation (principal)
CPT/HCPCS: 94664; 99283-25

== ENCOUNTER 2018-03-28 22:44 | Emergency (ER) | payer OTHER ==
[2018-03-29] MEDS: ALBUTEROL 0.083% (NEB) 2.5 MG/3 ML AMP NEB (01:17)
[2018-03-29] MEDS: IPRATROPIUM (NEB) 0.5 MG/2.5 ML AMP NEB (01:18)
== END 2018-03-29 01:55 | disposition home or self-care (01) ==
LOC: E/R 22:44
DX: J45.901 Unspecified asthma with (acute) exacerbation (principal)
CPT/HCPCS: 94664; 99283-25

== ENCOUNTER 2018-03-30 22:24 | Emergency (ER) | payer OTHER ==
[2018-03-30] MEDS: IPRATROPIUM (NEB) 0.5 MG/2.5 ML AMP HHN (23:31)
[2018-03-30] MEDS: LEVALBUTEROL (NEB) 1.25 MG/0.5 ML AMP HHN (23:31)
== END 2018-03-31 00:23 | disposition home or self-care (01) ==
LOC: E/R 03-31 00:23
DX: J45.901 Unspecified asthma with (acute) exacerbation (principal); R40.2142 Coma scale, eyes open, spontaneous, at arrival to emergency department; R40.2252 Coma scale, best verbal response, oriented, at arrival to emergency department; R40.2362 Coma scale, best motor response, obeys commands, at arrival to emergency department
CPT/HCPCS: 94664; 99283-25

== ENCOUNTER 2018-03-31 21:41 | Emergency (ER) | payer OTHER ==
[2018-03-31] MEDS: ALBUTEROL 0.083% (NEB) 2.5 MG/3 ML AMP HHN (22:29)
[2018-03-31] MEDS: IPRATROPIUM (NEB) 0.5 MG/2.5 ML AMP HHN (22:29)
[2018-03-31] MEDS: DEXAMETHASONE 4 MG TAB PO (23:51)
== END 2018-03-31 23:56 | disposition home or self-care (01) ==
LOC: E/R 21:41
DX: J45.901 Unspecified asthma with (acute) exacerbation (principal)
CPT/HCPCS: 94664; 99283-25

== ENCOUNTER 2018-04-01 22:36 | Emergency (ER) | payer OTHER ==
[2018-04-01] MEDS: IPRATROPIUM (NEB) 0.5 MG/2.5 ML AMP NEB (23:58)
[2018-04-01] MEDS: ALBUTEROL 0.083% (NEB) 2.5 MG/3 ML AMP NEB (23:58)
== END 2018-04-02 00:40 | disposition home or self-care (01) ==
LOC: E/R 04-02 00:40
DX: J45.31 Mild persistent asthma with (acute) exacerbation (principal)
CPT/HCPCS: 94664; 99283-25

== ENCOUNTER 2018-04-02 21:41 | Emergency (ER) | payer OTHER ==
[2018-04-02] MEDS ORDERED: ALBUTEROL 0.083% (NEB) 2.5 MG/3 ML AMP NEB (21:58)
[2018-04-02] MEDS ORDERED: IPRATROPIUM (NEB) 0.5 MG/2.5 ML AMP NEB (21:58)
== END 2018-04-02 23:25 | disposition home or self-care (01) ==
LOC: E/R 23:25
DX: J45.901 Unspecified asthma with (acute) exacerbation (principal)
CPT/HCPCS: 94664; 99283-25

== ENCOUNTER 2018-04-03 22:52 | Emergency (ER) | payer OTHER ==
[2018-04-04] MEDS: ALBUTEROL 0.5% (NEB) 2.5 MG/0.5 ML AMP INH (00:21)
[2018-04-04] MEDS: IPRATROPIUM (NEB) 0.5 MG/2.5 ML AMP INH (00:21)
== END 2018-04-04 00:57 | disposition home or self-care (01) ==
LOC: E/R 04-04 00:57
DX: J45.21 Mild intermittent asthma with (acute) exacerbation (principal); R40.2142 Coma scale, eyes open, spontaneous, at arrival to emergency department; R40.2252 Coma scale, best verbal response, oriented, at arrival to emergency department; R40.2362 Coma scale, best motor response, obeys commands, at arrival to emergency department
CPT/HCPCS: 94664; 99283-25

== ENCOUNTER 2018-04-04 22:11 | Emergency (ER) | payer OTHER ==
[2018-04-05] MEDS: IPRATROPIUM (NEB) 0.5 MG/2.5 ML AMP NEB (03:20)
[2018-04-05] MEDS: ALBUTEROL 0.083% (NEB) 2.5 MG/3 ML AMP NEB (03:20)
== END 2018-04-05 04:18 | disposition home or self-care (01) ==
LOC: E/R 22:11
DX: J45.41 Moderate persistent asthma with (acute) exacerbation (principal); R40.2142 Coma scale, eyes open, spontaneous, at arrival to emergency department; R40.2252 Coma scale, best verbal response, oriented, at arrival to emergency department; R40.2362 Coma scale, best motor response, obeys commands, at arrival to emergency department
CPT/HCPCS: 94664; 99283-25

== ENCOUNTER 2018-04-05 21:36 | Emergency (ER) | payer OTHER ==
[2018-04-05] MEDS: ALBUTEROL 0.5% (NEB) 2.5 MG/0.5 ML AMP INH (22:38)
== END 2018-04-05 23:01 | disposition home or self-care (01) ==
LOC: E/R 21:36
DX: J45.20 Mild intermittent asthma, uncomplicated (principal)
CPT/HCPCS: 94664; 99283-25

== ENCOUNTER 2018-04-06 22:13 | Emergency (ER) | payer OTHER ==
[2018-04-07] MEDS: LEVALBUTEROL (NEB) 1.25 MG/0.5 ML AMP HHN (04:04)
[2018-04-07] MEDS: IPRATROPIUM (NEB) 0.5 MG/2.5 ML AMP HHN (04:04)
== END 2018-04-07 04:29 | disposition home or self-care (01) ==
LOC: E/R 22:13
DX: J45.901 Unspecified asthma with (acute) exacerbation (principal); F88 Other disorders of psychological development; R40.2142 Coma scale, eyes open, spontaneous, at arrival to emergency department; R40.2252 Coma scale, best verbal response, oriented, at arrival to emergency department; R40.2362 Coma scale, best motor response, obeys commands, at arrival to emergency department
CPT/HCPCS: 94664; 99283-25

== ENCOUNTER 2018-04-07 21:47 | Emergency (ER) | payer OTHER ==
[2018-04-07] MEDS: IPRATROPIUM (NEB) 0.5 MG/2.5 ML AMP HHN (22:41)
== END 2018-04-07 22:55 | disposition home or self-care (01) ==
LOC: E/R 21:47
DX: J45.901 Unspecified asthma with (acute) exacerbation (principal)
CPT/HCPCS: 94664; 99283-25

== ENCOUNTER 2018-04-08 21:38 | Emergency (ER) | payer OTHER | END 2018-04-08 23:10 | disposition home or self-care (01) | LOC: E/R 21:38 | DX: J45.901 Unspecified asthma with (acute) exacerbation (principal) | CPT/HCPCS: 99283; Z7502 ==

== ENCOUNTER 2018-04-10 21:53 | Emergency (ER) | payer OTHER ==
[2018-04-11] MEDS ORDERED: ALBUTEROL 0.5% (NEB) 2.5 MG/0.5 ML AMP INH (00:28)
[2018-04-11] MEDS ORDERED: predniSONE 20 MG TAB PO (00:28)
== END 2018-04-11 02:20 | disposition home or self-care (01) ==
LOC: E/R 21:53
DX: F41.9 Anxiety disorder, unspecified (principal); J45.901 Unspecified asthma with (acute) exacerbation
CPT/HCPCS: 99282; Z7502

== ENCOUNTER 2018-04-12 22:03 | Emergency (ER) | payer OTHER ==
[2018-04-12] MEDS: IPRATROPIUM (NEB) 0.5 MG/2.5 ML AMP HHN (22:40)
[2018-04-12] MEDS: DEXAMETHASONE (1 MG/ML PO SYG) PO (22:51)
== END 2018-04-12 23:30 | disposition home or self-care (01) ==
LOC: E/R 22:03
DX: J45.901 Unspecified asthma with (acute) exacerbation (principal)
CPT/HCPCS: 94664; 99283-25

== ENCOUNTER 2018-04-13 21:40 | Emergency (ER) | payer OTHER ==
[2018-04-13] MEDS: ALBUTEROL 0.083% (NEB) 2.5 MG/3 ML AMP NEB (22:42)
[2018-04-13] MEDS: IPRATROPIUM (NEB) 0.5 MG/2.5 ML AMP NEB (22:42)
== END 2018-04-14 00:01 | disposition home or self-care (01) ==
LOC: E/R 04-14 00:01
DX: J45.901 Unspecified asthma with (acute) exacerbation (principal)
CPT/HCPCS: 94664; 99283-25

== ENCOUNTER 2018-04-14 21:22 | Emergency (ER) | payer OTHER | END 2018-04-14 22:35 | disposition home or self-care (01) | LOC: E/R 22:35 | DX: F41.9 Anxiety disorder, unspecified (principal); J45.909 Unspecified asthma, uncomplicated; F88 Other disorders of psychological development | CPT/HCPCS: 99282; Z7502 ==

== ENCOUNTER 2018-04-22 22:02 | Emergency (ER) | payer OTHER ==
[2018-04-22] MEDS: IPRATROPIUM (NEB) 0.5 MG/2.5 ML AMP NEB (23:28)
[2018-04-22] MEDS: ALBUTEROL 0.083% (NEB) 2.5 MG/3 ML AMP NEB (23:28)
== END 2018-04-23 00:09 | disposition home or self-care (01) ==
LOC: E/R 04-23 00:09
DX: J45.901 Unspecified asthma with (acute) exacerbation (principal); F88 Other disorders of psychological development
CPT/HCPCS: 94664; 99283-25

== ENCOUNTER 2018-04-30 23:14 | Emergency (ER) | payer OTHER ==
[2018-05-01] MEDS ORDERED: ALBUTEROL 0.083% (NEB) 2.5 MG/3 ML AMP NEB (01:08)
[2018-05-01] MEDS ORDERED: IPRATROPIUM (NEB) 0.5 MG/2.5 ML AMP NEB (01:08)
== END 2018-05-01 01:18 | disposition home or self-care (01) ==
LOC: E/R 05-01 01:18
DX: J45.901 Unspecified asthma with (acute) exacerbation (principal)
CPT/HCPCS: 99282; Z7502

== ENCOUNTER 2018-05-02 22:22 | Emergency (ER) | payer OTHER ==
[2018-05-02] MEDS: DEXAMETHASONE 10 MG/ML 1 ML INJ PO (23:25)
[2018-05-02] MEDS: IPRATROPIUM (NEB) 0.5 MG/2.5 ML AMP HHN (23:29)
[2018-05-02] MEDS: ALBUTEROL 0.083% (NEB) 2.5 MG/3 ML AMP HHN (23:29)
== END 2018-05-03 00:25 | disposition home or self-care (01) ==
LOC: E/R 22:22
DX: J45.901 Unspecified asthma with (acute) exacerbation (principal); R40.2142 Coma scale, eyes open, spontaneous, at arrival to emergency department; R40.2362 Coma scale, best motor response, obeys commands, at arrival to emergency department; R40.2252 Coma scale, best verbal response, oriented, at arrival to emergency department; R06.02 Shortness of breath
CPT/HCPCS: 94664; 99283-25

== ENCOUNTER 2018-05-05 19:45 | Emergency (ER) | payer OTHER ==
[2018-05-05] MEDS: ALBUTEROL 0.083% (NEB) 2.5 MG/3 ML AMP NEB (20:52)
== END 2018-05-05 22:14 | disposition home or self-care (01) ==
LOC: E/R 22:14
DX: J45.901 Unspecified asthma with (acute) exacerbation (principal); F88 Other disorders of psychological development
CPT/HCPCS: 94664; 99283-25

== ENCOUNTER 2018-05-06 17:10 | Emergency (ER) | payer OTHER ==
[2018-05-06] MEDS: ALBUTEROL 0.083% (NEB) 2.5 MG/3 ML AMP HHN (19:23)
== END 2018-05-06 20:37 | disposition home or self-care (01) ==
LOC: E/R 17:10
DX: J45.901 Unspecified asthma with (acute) exacerbation (principal); Z76.0 Encounter for issue of repeat prescription
CPT/HCPCS: 94664; 99283-25

== ENCOUNTER 2018-05-07 21:39 | Emergency (ER) | payer OTHER ==
[2018-05-07] MEDS: IPRATROPIUM (NEB) 0.5 MG/2.5 ML AMP NEB (23:01)
[2018-05-07] MEDS: ALBUTEROL 0.083% (NEB) 2.5 MG/3 ML AMP NEB (23:01)
== END 2018-05-07 23:40 | disposition home or self-care (01) ==
LOC: E/R 21:39
DX: J45.901 Unspecified asthma with (acute) exacerbation (principal); R40.2142 Coma scale, eyes open, spontaneous, at arrival to emergency department; R40.2362 Coma scale, best motor response, obeys commands, at arrival to emergency department; R40.2252 Coma scale, best verbal response, oriented, at arrival to emergency department
CPT/HCPCS: 94664; 99283-25

== ENCOUNTER 2018-05-08 15:35 | Emergency (ER) | payer OTHER ==
[2018-05-08] MEDS: DEXAMETHASONE 10 MG/ML 1 ML INJ PO (18:00)
[2018-05-08] MEDS: IPRATROPIUM (NEB) 0.5 MG/2.5 ML AMP HHN (18:19)
== END 2018-05-08 19:08 | disposition home or self-care (01) ==
LOC: FTE 15:35
DX: J45.901 Unspecified asthma with (acute) exacerbation (principal)
CPT/HCPCS: 94664; 99283-25

== ENCOUNTER 2018-05-09 21:59 | Emergency (ER) | payer OTHER | END 2018-05-10 00:30 | disposition home or self-care (01) | LOC: E/R 21:59 | DX: Z73.2 Lack of relaxation and leisure (principal); R40.2142 Coma scale, eyes open, spontaneous, at arrival to emergency department; R40.2252 Coma scale, best verbal response, oriented, at arrival to emergency department; R40.2362 Coma scale, best motor response, obeys commands, at arrival to emergency department; J45.901 Unspecified asthma with (acute) exacerbation | CPT/HCPCS: 99282; Z7502 ==

== ENCOUNTER 2018-05-10 00:45 | Emergency (ER) | payer OTHER ==
[2018-05-10] MEDS: ALBUTEROL 0.083% (NEB) 2.5 MG/3 ML AMP HHN (03:02)
[2018-05-10] MEDS: IPRATROPIUM (NEB) 0.5 MG/2.5 ML AMP HHN (03:02)
[2018-05-10] MEDS: DEXAMETHASONE 10 MG/ML 1 ML INJ PO (03:06)
== END 2018-05-10 04:09 | disposition home or self-care (01) ==
LOC: E/R 00:45
DX: J45.901 Unspecified asthma with (acute) exacerbation (principal); R40.2142 Coma scale, eyes open, spontaneous, at arrival to emergency department; R40.2252 Coma scale, best verbal response, oriented, at arrival to emergency department; R40.2362 Coma scale, best motor response, obeys commands, at arrival to emergency department; F88 Other disorders of psychological development
CPT/HCPCS: 94664; 99283-25

== ENCOUNTER 2018-05-19 03:58 | Emergency (ER) | payer OTHER ==
[2018-05-19] MEDS ORDERED: ALBUTEROL 0.5% (NEB) 2.5 MG/0.5 ML AMP INH (06:28)
[2018-05-19] MEDS ORDERED: IPRATROPIUM (NEB) 0.5 MG/2.5 ML AMP INH (06:28)
== END 2018-05-19 07:24 | disposition home or self-care (01) ==
LOC: E/R 03:58
DX: J45.20 Mild intermittent asthma, uncomplicated (principal)
CPT/HCPCS: 94644; 99283-25

== ENCOUNTER 2018-05-19 21:25 | Emergency (ER) | payer OTHER ==
[2018-05-19] MEDS: ALBUTEROL 0.083% (NEB) 2.5 MG/3 ML AMP HHN (22:14)
[2018-05-19] MEDS: DEXAMETHASONE 10 MG/ML 1 ML INJ PO (22:34)
== END 2018-05-19 22:39 | disposition home or self-care (01) ==
LOC: E/R 21:25
DX: J45.901 Unspecified asthma with (acute) exacerbation (principal)
CPT/HCPCS: 94644; 94664; 99283-25

== ENCOUNTER 2018-05-20 19:17 | Emergency (ER) | payer OTHER ==
[2018-05-20] MEDS: DEXAMETHASONE 10 MG/ML 1 ML INJ PO (20:03)
[2018-05-20] MEDS: ALBUTEROL 0.083% (NEB) 2.5 MG/3 ML AMP HHN (20:09)
[2018-05-20] MEDS: IPRATROPIUM (NEB) 0.5 MG/2.5 ML AMP HHN (20:09)
== END 2018-05-20 21:04 | disposition home or self-care (01) ==
LOC: E/R 19:17
DX: J45.901 Unspecified asthma with (acute) exacerbation (principal)
CPT/HCPCS: 94644; 99283-25

== ENCOUNTER 2018-06-03 00:17 | Emergency (ER) | payer OTHER ==
[2018-06-03] MEDS: IPRATROPIUM (NEB) 0.5 MG/2.5 ML AMP NEB (00:43)
[2018-06-03] MEDS: ALBUTEROL 0.083% (NEB) 2.5 MG/3 ML AMP NEB (00:43)
== END 2018-06-03 01:09 | disposition home or self-care (01) ==
LOC: E/R 00:17
DX: J45.901 Unspecified asthma with (acute) exacerbation (principal); Z91.14 Patient's other noncompliance with medication regimen
CPT/HCPCS: 94664; 99283-25

== ENCOUNTER 2018-07-11 20:20 | Emergency (ER) | payer OTHER ==
[2018-07-11] MEDS: IPRATROPIUM (NEB) 0.5 MG/2.5 ML AMP HHN (21:09)
[2018-07-11] MEDS: LEVALBUTEROL (NEB) 1.25 MG/0.5 ML AMP HHN (21:09)
== END 2018-07-11 21:54 | disposition home or self-care (01) ==
LOC: E/R 20:20
DX: J45.901 Unspecified asthma with (acute) exacerbation (principal); F88 Other disorders of psychological development
CPT/HCPCS: 94664; 99283-25

== ENCOUNTER 2018-08-27 10:13 | Emergency (ER) | payer OTHER ==
[2018-08-27] MEDS: ALBUTEROL 0.5% (NEB) 2.5 MG/0.5 ML AMP INH (10:50)
[2018-08-27] MEDS: predniSONE 20 MG TAB PO (11:11)
== END 2018-08-27 11:19 | disposition home or self-care (01) ==
LOC: E/R 10:13
DX: F41.9 Anxiety disorder, unspecified (principal); J45.41 Moderate persistent asthma with (acute) exacerbation
CPT/HCPCS: 94644; 99283-25

== ENCOUNTER 2018-08-29 22:11 | Emergency (ER) | payer OTHER ==
[2018-08-30] MEDS: predniSONE 20 MG TAB PO (00:57)
[2018-08-30] MEDS: IPRATROPIUM (NEB) 0.5 MG/2.5 ML AMP NEB (01:07)
[2018-08-30] MEDS: ALBUTEROL 0.083% (NEB) 2.5 MG/3 ML AMP NEB (01:07)
== END 2018-08-30 01:36 | disposition home or self-care (01) ==
LOC: FTE 22:11
DX: J45.901 Unspecified asthma with (acute) exacerbation (principal); I25.2 Old myocardial infarction
CPT/HCPCS: 94664; 99283-25

== ENCOUNTER 2018-09-07 22:00 | Emergency (ER) | payer OTHER ==
[2018-09-08] MEDS: LEVALBUTEROL (NEB) 1.25 MG/0.5 ML AMP INH (02:42)
[2018-09-08] MEDS: IPRATROPIUM (NEB) 0.5 MG/2.5 ML AMP INH (02:42)
[2018-09-08] MEDS: SOD CHLORIDE 0.9% 1,000 ML IV ×2 (03:05→04:43)
[2018-09-08] MEDS: METHYLPREDNISOLONE 125 MG INJ IV (03:05)
== END 2018-09-08 06:51 | disposition home or self-care (01) ==
LOC: E/R 22:00
DX: J45.901 Unspecified asthma with (acute) exacerbation (principal); I25.2 Old myocardial infarction
CPT/HCPCS: 71045; 93005; 94644; 96361; 96374; 99284-25

== ENCOUNTER 2018-09-08 22:53 | Emergency (ER) | payer OTHER ==
[2018-09-09] MEDS ORDERED: LEVALBUTEROL (NEB) 1.25 MG/0.5 ML AMP (00:26)
[2018-09-09] MEDS ORDERED: IPRATROPIUM (NEB) 0.5 MG/2.5 ML AMP (00:26)
[2018-09-09] MEDS: predniSONE 20 MG TAB PO (00:39)
[2018-09-09] MEDS: SOD CHLORIDE 0.9% 1,000 ML IV (00:40)
== END 2018-09-09 03:45 | disposition home or self-care (01) ==
LOC: E/R 22:53
DX: J45.901 Unspecified asthma with (acute) exacerbation (principal); I25.2 Old myocardial infarction
CPT/HCPCS: 94664; 96360; 96361; 99284-25

== ENCOUNTER 2018-09-09 12:14 | Emergency (ER) | payer OTHER ==
[2018-09-09] MEDS: ALBUTEROL/IPRATROPIUM (NEB) 3 ML AMP HHN (13:17)
== END 2018-09-09 14:13 | disposition home or self-care (01) ==
LOC: E/R 12:14
DX: J45.21 Mild intermittent asthma with (acute) exacerbation (principal)
CPT/HCPCS: 94664; 99283-25

== ENCOUNTER 2018-09-09 20:43 | Emergency (ER) | payer OTHER ==
[2018-09-09] MEDS: predniSONE 20 MG TAB PO (20:57)
[2018-09-09] MEDS: ALBUTEROL 0.083% (NEB) 2.5 MG/3 ML AMP NEB (21:02)
[2018-09-09] MEDS: IPRATROPIUM (NEB) 0.5 MG/2.5 ML AMP NEB (21:02)
== END 2018-09-09 21:45 | disposition home or self-care (01) ==
LOC: E/R 20:43
DX: J45.901 Unspecified asthma with (acute) exacerbation (principal)
CPT/HCPCS: 71045; 94664; 99283-25

== ENCOUNTER 2018-09-25 17:17 | Emergency (ER) | payer OTHER ==
[2018-09-25] MEDS: ALBUTEROL 0.083% (NEB) 2.5 MG/3 ML AMP HHN (19:29)
== END 2018-09-25 19:48 | disposition home or self-care (01) ==
LOC: E/R 17:17
DX: J45.901 Unspecified asthma with (acute) exacerbation (principal)
CPT/HCPCS: 94664; 99283-25

== ENCOUNTER 2018-09-26 11:02 | Emergency (ER) | payer OTHER ==
[2018-09-26] MEDS: ALBUTEROL 0.083% (NEB) 2.5 MG/3 ML AMP NEB (13:26)
[2018-09-26] MEDS: IPRATROPIUM (NEB) 0.5 MG/2.5 ML AMP NEB (13:26)
== END 2018-09-26 15:45 | disposition home or self-care (01) ==
LOC: E/R 11:02
DX: J45.901 Unspecified asthma with (acute) exacerbation (principal)
CPT/HCPCS: 94664; 99283-25

== ENCOUNTER 2018-09-28 04:03 | Emergency (ER) | payer OTHER ==
[2018-09-28] MEDS: IPRATROPIUM (NEB) 0.5 MG/2.5 ML AMP INH (04:25)
[2018-09-28] MEDS: LEVALBUTEROL (NEB) 1.25 MG/0.5 ML AMP INH (04:26)
[2018-09-28] MEDS: SOD CHLORIDE 0.9% 1,000 ML IV ×2 (04:40→04:41)
[2018-09-28] MEDS: METHYLPREDNISOLONE 125 MG INJ IV (04:41)
== END 2018-09-28 06:02 | disposition home or self-care (01) ==
LOC: E/R 04:03
DX: J45.901 Unspecified asthma with (acute) exacerbation (principal)
CPT/HCPCS: 94644; 96374; 99284-25

== ENCOUNTER 2018-09-28 11:01 | Emergency (ER) | payer OTHER ==
[2018-09-28] MEDS ORDERED: ALBUTEROL 0.083% (NEB) 2.5 MG/3 ML AMP HHN (11:38)
== END 2018-09-28 12:56 | disposition home or self-care (01) ==
LOC: E/R 11:01
DX: Z76.0 Encounter for issue of repeat prescription (principal); J45.909 Unspecified asthma, uncomplicated
CPT/HCPCS: 99281; Z7502

== ENCOUNTER 2018-10-06 02:08 | Emergency (ER) | payer OTHER | END 2018-10-06 02:30 | disposition home or self-care (01) | LOC: E/R 02:08 | DX: J45.901 Unspecified asthma with (acute) exacerbation (principal); R00.0 Tachycardia, unspecified; Z91.14 Patient's other noncompliance with medication regimen | CPT/HCPCS: 99282; Z7502 ==

== ENCOUNTER 2018-10-07 16:06 | Emergency (ER) | payer OTHER ==
[2018-10-07] MEDS: ALBUTEROL 0.083% (NEB) 2.5 MG/3 ML AMP NEB (19:09)
== END 2018-10-07 19:42 | disposition home or self-care (01) ==
LOC: E/R 16:06
DX: J45.901 Unspecified asthma with (acute) exacerbation (principal)
CPT/HCPCS: 94664; 99283-25

== ENCOUNTER 2018-10-08 10:09 | Emergency (ER) | payer OTHER ==
[2018-10-08] MEDS: IPRATROPIUM (NEB) 0.5 MG/2.5 ML AMP NEB (10:54)
[2018-10-08] MEDS: ALBUTEROL 0.083% (NEB) 2.5 MG/3 ML AMP NEB (10:54)
[2018-10-08] MEDS ORDERED: ALBUTEROL HFA 8 GM INHALER INH (13:00)
== END 2018-10-08 11:43 | disposition home or self-care (01) ==
LOC: E/R 10:09
DX: J45.31 Mild persistent asthma with (acute) exacerbation (principal)
CPT/HCPCS: 71045; 94664; 99283-25

== ENCOUNTER 2018-10-10 09:09 | Emergency (ER) | payer OTHER ==
[2018-10-10] MEDS: predniSONE 20 MG TAB PO (11:08)
[2018-10-10] MEDS: ALBUTEROL 0.083% (NEB) 2.5 MG/3 ML AMP NEB (11:19)
[2018-10-10] MEDS: IPRATROPIUM (NEB) 0.5 MG/2.5 ML AMP NEB (11:19)
== END 2018-10-10 12:27 | disposition home or self-care (01) ==
LOC: FTE 09:09
DX: J45.901 Unspecified asthma with (acute) exacerbation (principal)
CPT/HCPCS: 94664; 99283-25

== ENCOUNTER 2018-10-11 09:41 | Emergency (ER) | payer OTHER ==
[2018-10-11] MEDS: ALBUTEROL 0.083% (NEB) 2.5 MG/3 ML AMP HHN (10:13)
[2018-10-11] MEDS: IPRATROPIUM (NEB) 0.5 MG/2.5 ML AMP HHN (10:13)
[2018-10-11] MEDS ORDERED: ALBUTEROL HFA 8 GM INHALER INH (13:00)
== END 2018-10-11 11:22 | disposition home or self-care (01) ==
LOC: FTE 09:41
DX: J45.901 Unspecified asthma with (acute) exacerbation (principal)
CPT/HCPCS: 94664; 99283-25

== ENCOUNTER 2018-10-13 21:40 | Emergency (ER) | payer OTHER ==
[2018-10-13 22:25] LABS: ADD MAN DIFF? NO
[2018-10-13] MEDS: METHYLPREDNISOLONE 125 MG INJ IV (22:26)
[2018-10-13] MEDS: ASPIRIN 325 MG TAB PO (22:26)
[2018-10-13 22:28] LABS: WHITE BLOOD COUNT 8.1 10^3/ul (4.8-10.8)
[2018-10-13 22:28] LABS: BASOPHIL # 0.1 10^3/ul (0.0-0.1); BASOPHILS % 0.7 % (0.0-2.0); EOSINOPHILS # 0.4 10^3/ul (0.0-0.5); EOSINOPHILS % 5.3 % (0.0-7.0); HEMATOCRIT 47.5 % (42.0-52.0); HEMOGLOBIN 16.9 g/dl (14.0-18.0); LYMPHOCYTES # 2.6 10^3/ul (0.8-2.9); LYMPHOCYTES % 32.3 % (15.0-51.0); MEAN CORPUSCULAR HEMOGLOBIN 29.4 pg (29.0-33.0); MEAN CORPUSCULAR HGB CONC 35.6 g/dl (32.0-37.0); MEAN CORPUSCULAR VOLUME 82.8 fl (82.0-101.0); MEAN PLATELET VOLUME 8.8 fl (7.4-10.4); MONOCYTE # 0.5 10^3/ul (0.3-0.9); MONOCYTES % 6.4 % (0.0-11.0); NEUTROPHIL # 4.4 10^3/ul (1.6-7.5); NEUTROPHILS % 54.7 % (39.0-77.0); PLATELET COUNT 179 10^3/UL (140-415); RED BLOOD COUNT 5.74 10^6/ul (4.70-6.10); RED CELL DISTRIBUTION WIDTH 13.1 % (11.5-14.5)
[2018-10-13] MEDS: LEVALBUTEROL (NEB) 1.25 MG/0.5 ML AMP HHN (22:35)
[2018-10-13 22:47] LABS: INR 0.91; PROTIME 12.3 Sec (11.9-14.9)
[2018-10-13 22:50] LABS: ALANINE AMINOTRANSFERASE 30 IU/L (13-69); ALBUMIN 4.8 g/dl (3.3-4.9); ALBUMIN/GLOBULIN RATIO 1.92; ALKALINE PHOSPHATASE 68 IU/L (42-121); ANION GAP 12 (5-13); ASPARTATE AMINO TRANSFERASE 19 IU/L (15-46); BILIRUBIN,INDIRECT 0.5 mg/dl (0-1.1); BILIRUBIN,TOTAL 0.5 mg/dl (0.2-1.3); BLOOD UREA NITROGEN 19 mg/dl (7-20); CALCIUM 9.9 mg/dl (8.4-10.2); CARBON DIOXIDE 31 mmol/L (21-31); CHLORIDE 99 mmol/L (97-110); CREATININE 0.67 mg/dl (0.61-1.24); Estimated GFR > 60 mL/min (>60); GLUCOSE 117 mg/dl (70-220); SODIUM 142 mmol/L (135-144); TOTAL PROTEIN 7.3 g/dl (6.1-8.1)
[2018-10-13 23:02] LABS: TROPONIN-I < 0.012 ng/ml (0.000-0.120)
[2018-10-14] MEDS ORDERED: LIDOCAINE 1% (MDV) 20 ML INJ (00:10)
== END 2018-10-14 00:35 | disposition home or self-care (01) ==
LOC: FTE 10-14 00:35
DX: J45.901 Unspecified asthma with (acute) exacerbation (principal); R07.89 Other chest pain
CPT/HCPCS: 71046; 80053; 84484; 85025; 85610; 85730; 93005; 94664; 96374; 99285-25

== ENCOUNTER 2018-10-17 11:51 | Emergency (ER) | payer OTHER ==
[2018-10-17] MEDS: DEXAMETHASONE 10 MG/ML 1 ML INJ IM (13:07)
[2018-10-17] MEDS: ALBUTEROL 0.5% (NEB) 2.5 MG/0.5 ML AMP INH (13:11)
[2018-10-17] MEDS: IPRATROPIUM (NEB) 0.5 MG/2.5 ML AMP INH (13:11)
== END 2018-10-17 14:35 | disposition home or self-care (01) ==
LOC: E/R 11:51
DX: J45.21 Mild intermittent asthma with (acute) exacerbation (principal); R00.0 Tachycardia, unspecified; Z91.14 Patient's other noncompliance with medication regimen
CPT/HCPCS: 93005; 94644; 96372; 99284-25

== ENCOUNTER 2018-10-24 19:21 | Emergency (ER) | payer OTHER ==
[2018-10-24] MEDS: ALBUTEROL 0.083% (NEB) 2.5 MG/3 ML AMP NEB (21:55)
== END 2018-10-24 22:25 | disposition home or self-care (01) ==
LOC: E/R 19:21
DX: J45.901 Unspecified asthma with (acute) exacerbation (principal)
CPT/HCPCS: 94664; 99283-25

== ENCOUNTER 2018-10-25 12:38 | Emergency (ER) | payer OTHER ==
[2018-10-25] MEDS: ALBUTEROL 0.5% (NEB) 2.5 MG/0.5 ML AMP INH (14:52)
[2018-10-25] MEDS: predniSONE 20 MG TAB PO (15:26)
== END 2018-10-25 15:50 | disposition home or self-care (01) ==
LOC: E/R 12:38
DX: J45.41 Moderate persistent asthma with (acute) exacerbation (principal)
CPT/HCPCS: 94644; 99283-25

== ENCOUNTER 2018-10-26 12:02 | Emergency (ER) | payer OTHER ==
[2018-10-26] MEDS: ALBUTEROL 0.083% (NEB) 2.5 MG/3 ML AMP NEB (12:51)
[2018-10-26] MEDS: IPRATROPIUM (NEB) 0.5 MG/2.5 ML AMP NEB (12:52)
== END 2018-10-26 14:01 | disposition home or self-care (01) ==
LOC: E/R 12:02
DX: J45.21 Mild intermittent asthma with (acute) exacerbation (principal)
CPT/HCPCS: 94664; 99284-25

== ENCOUNTER 2018-10-27 14:55 | Emergency (ER) | payer OTHER ==
[2018-10-27] MEDS: ALBUTEROL 0.083% (NEB) 2.5 MG/3 ML AMP HHN (16:25)
[2018-10-27] MEDS: ALBUTEROL HFA 8 GM INHALER INH (16:56)
== END 2018-10-27 17:11 | disposition home or self-care (01) ==
LOC: FTE 14:55
DX: J45.901 Unspecified asthma with (acute) exacerbation (principal)
CPT/HCPCS: 94664; 99283-25

== ENCOUNTER 2018-10-31 08:29 | Emergency (ER) | payer OTHER | END 2018-10-31 09:24 | disposition home or self-care (01) | LOC: E/R 08:29 | DX: J45.901 Unspecified asthma with (acute) exacerbation (principal); F41.9 Anxiety disorder, unspecified; F88 Other disorders of psychological development | CPT/HCPCS: 99283; Z7502 ==

== ENCOUNTER 2018-11-03 12:33 | Emergency (ER) | payer OTHER ==
[2018-11-03] MEDS: ALBUTEROL 0.5% (NEB) 2.5 MG/0.5 ML AMP INH (16:52)
== END 2018-11-03 17:04 | disposition home or self-care (01) ==
LOC: E/R 12:33
DX: Z76.0 Encounter for issue of repeat prescription (principal); J45.909 Unspecified asthma, uncomplicated
CPT/HCPCS: 93005; 99281

== ENCOUNTER 2018-11-05 11:33 | Emergency (ER) | payer OTHER | END 2018-11-05 12:07 | disposition home or self-care (01) | LOC: E/R 11:33 | DX: J45.901 Unspecified asthma with (acute) exacerbation (principal) | CPT/HCPCS: 99283; Z7502 ==

== ENCOUNTER 2018-11-05 18:27 | Emergency (ER) | payer OTHER | END 2018-11-05 19:32 | disposition home or self-care (01) | LOC: E/R 18:27 | DX: J45.901 Unspecified asthma with (acute) exacerbation (principal) | CPT/HCPCS: 99283; Z7502 ==

== ENCOUNTER 2018-11-06 21:22 | Emergency (ER) | payer OTHER ==
[2018-11-06] MEDS: ALBUTEROL 0.083% (NEB) 2.5 MG/3 ML AMP NEB (23:10)
[2018-11-06] MEDS: IPRATROPIUM (NEB) 0.5 MG/2.5 ML AMP NEB (23:10)
== END 2018-11-07 00:09 | disposition home or self-care (01) ==
LOC: E/R 11-07 00:09
DX: J45.901 Unspecified asthma with (acute) exacerbation (principal)
CPT/HCPCS: 94664; 99283-25

== ENCOUNTER 2018-11-08 22:55 | Emergency (ER) | payer OTHER | END 2018-11-09 01:16 | disposition home or self-care (01) | LOC: E/R 22:55 | DX: F41.9 Anxiety disorder, unspecified (principal); J45.909 Unspecified asthma, uncomplicated | CPT/HCPCS: 99282; Z7502 ==

== ENCOUNTER 2018-11-10 22:45 | Emergency (ER) | payer OTHER ==
[2018-11-11] MEDS: ALBUTEROL 0.5% (NEB) 2.5 MG/0.5 ML AMP INH (00:14)
== END 2018-11-11 00:54 | disposition home or self-care (01) ==
LOC: E/R 22:45
DX: J45.41 Moderate persistent asthma with (acute) exacerbation (principal); F41.9 Anxiety disorder, unspecified
CPT/HCPCS: 94664; 99283-25

== ENCOUNTER 2018-11-12 01:25 | Emergency (ER) | payer OTHER ==
[2018-11-12] MEDS: ALBUTEROL 0.083% (NEB) 2.5 MG/3 ML AMP NEB (01:49)
[2018-11-12] MEDS: IPRATROPIUM (NEB) 0.5 MG/2.5 ML AMP NEB (01:49)
[2018-11-12] MEDS: ALBUTEROL HFA 8 GM INHALER INH (02:12)
== END 2018-11-12 02:19 | disposition home or self-care (01) ==
LOC: E/R 01:25
DX: J45.901 Unspecified asthma with (acute) exacerbation (principal)
CPT/HCPCS: 94664; 99284-25

== ENCOUNTER 2018-11-13 05:28 | Emergency (ER) | payer OTHER ==
[2018-11-13] MEDS: DEXAMETHASONE 10 MG/ML 1 ML INJ IM (05:46)
[2018-11-13] MEDS: ALBUTEROL/IPRATROPIUM (NEB) 3 ML AMP HHN (06:28)
== END 2018-11-13 06:59 | disposition home or self-care (01) ==
LOC: E/R 05:28
DX: J45.31 Mild persistent asthma with (acute) exacerbation (principal); Z91.14 Patient's other noncompliance with medication regimen
CPT/HCPCS: 94664; 96372; 99284-25

== ENCOUNTER 2018-11-16 21:18 | Emergency (ER) | payer OTHER ==
[2018-11-16] MEDS: ALBUTEROL 0.083% (NEB) 2.5 MG/3 ML AMP NEB (21:46)
== END 2018-11-16 22:12 | disposition home or self-care (01) ==
LOC: E/R 21:18
DX: J45.901 Unspecified asthma with (acute) exacerbation (principal); Z00.00 Encounter for general adult medical examination without abnormal findings
CPT/HCPCS: 94664; 99283-25

== ENCOUNTER 2018-11-17 14:32 | Emergency (ER) | payer OTHER | END 2018-11-17 15:13 | disposition home or self-care (01) | LOC: E/R 14:32 | DX: Z00.00 Encounter for general adult medical examination without abnormal findings (principal); J45.901 Unspecified asthma with (acute) exacerbation | CPT/HCPCS: 99282; Z7502 ==

== ENCOUNTER 2018-11-17 18:17 | Emergency (ER) | payer OTHER ==
[2018-11-17] MEDS: ALBUTEROL 0.083% (NEB) 2.5 MG/3 ML AMP NEB (19:21)
[2018-11-17] MEDS: IPRATROPIUM (NEB) 0.5 MG/2.5 ML AMP NEB (19:21)
== END 2018-11-17 19:41 | disposition home or self-care (01) ==
LOC: E/R 18:17
DX: J45.901 Unspecified asthma with (acute) exacerbation (principal)
CPT/HCPCS: 94664; 99283

== ENCOUNTER 2018-11-18 03:29 | Emergency (ER) | payer OTHER ==
[2018-11-18] MEDS: ALBUTEROL 0.083% (NEB) 2.5 MG/3 ML AMP NEB (04:01)
== END 2018-11-18 04:27 | disposition home or self-care (01) ==
LOC: E/R 03:29
DX: J45.901 Unspecified asthma with (acute) exacerbation (principal)
CPT/HCPCS: 94664; 99283-25; Z7502

== ENCOUNTER 2018-11-18 06:47 | Emergency (ER) | payer OTHER | END 2018-11-18 07:30 | disposition home or self-care (01) | LOC: FTE 06:47 | DX: Z76.0 Encounter for issue of repeat prescription (principal); J45.909 Unspecified asthma, uncomplicated | CPT/HCPCS: 99281; Z7502 ==

== ENCOUNTER 2018-11-21 07:42 | Emergency (ER) | payer OTHER ==
[2018-11-21] MEDS: ALBUTEROL 0.083% (NEB) 2.5 MG/3 ML AMP HHN (08:15)
== END 2018-11-21 08:25 | disposition home or self-care (01) ==
LOC: E/R 07:42
DX: J45.901 Unspecified asthma with (acute) exacerbation (principal)
CPT/HCPCS: 94664; 99283-25

== ENCOUNTER 2018-11-21 16:51 | Emergency (ER) | payer OTHER ==
[2018-11-21] MEDS: IPRATROPIUM (NEB) 0.5 MG/2.5 ML AMP INH (17:47)
[2018-11-21] MEDS: LEVALBUTEROL (NEB) 1.25 MG/0.5 ML AMP INH (17:47)
[2018-11-21] MEDS: SOD CHLORIDE 0.9% 1,000 ML IV (17:58)
[2018-11-21] MEDS: METHYLPREDNISOLONE 125 MG INJ IV (17:59)
== END 2018-11-21 18:23 | disposition home or self-care (01) ==
LOC: E/R 16:51
DX: J45.901 Unspecified asthma with (acute) exacerbation (principal)
CPT/HCPCS: 94644; 96374; 99284-25

== ENCOUNTER 2018-12-30 11:05 | Emergency (ER) | payer OTHER ==
[2018-12-30] MEDS: ALBUTEROL 0.083% (NEB) 2.5 MG/3 ML AMP NEB (12:35)
[2018-12-30] MEDS: IPRATROPIUM (NEB) 0.5 MG/2.5 ML AMP NEB (12:36)
== END 2018-12-30 13:02 | disposition home or self-care (01) ==
LOC: E/R 11:05
DX: J45.21 Mild intermittent asthma with (acute) exacerbation (principal)
CPT/HCPCS: 94664; 99284-25

== ENCOUNTER 2018-12-31 02:40 | Emergency (ER) | payer OTHER ==
[2018-12-31] MEDS: ALBUTEROL 0.083% (NEB) 2.5 MG/3 ML AMP NEB (03:12)
[2018-12-31] MEDS: IPRATROPIUM (NEB) 0.5 MG/2.5 ML AMP NEB (03:13)
== END 2018-12-31 03:26 | disposition home or self-care (01) ==
LOC: E/R 02:40
DX: J45.901 Unspecified asthma with (acute) exacerbation (principal)
CPT/HCPCS: 94664; 99284-25

== ENCOUNTER 2019-01-03 04:12 | Emergency (ER) | payer OTHER ==
[2019-01-03] MEDS: ALBUTEROL 0.083% (NEB) 2.5 MG/3 ML AMP NEB (04:54)
[2019-01-03] MEDS: IPRATROPIUM (NEB) 0.5 MG/2.5 ML AMP NEB (04:55)
== END 2019-01-03 05:25 | disposition home or self-care (01) ==
LOC: E/R 04:12
DX: J45.901 Unspecified asthma with (acute) exacerbation (principal); R40.2142 Coma scale, eyes open, spontaneous, at arrival to emergency department; R40.2362 Coma scale, best motor response, obeys commands, at arrival to emergency department; R40.2252 Coma scale, best verbal response, oriented, at arrival to emergency department
CPT/HCPCS: 94664; 99284-25

== ENCOUNTER 2019-01-04 08:02 | Emergency (ER) | payer OTHER ==
[2019-01-04] MEDS: ALBUTEROL 0.083% (NEB) 2.5 MG/3 ML AMP NEB (09:07)
== END 2019-01-04 09:26 | disposition home or self-care (01) ==
LOC: E/R 08:02
DX: J45.21 Mild intermittent asthma with (acute) exacerbation (principal); Z76.0 Encounter for issue of repeat prescription
CPT/HCPCS: 94664; 99283-25

== ENCOUNTER 2019-01-05 08:47 | Emergency (ER) | payer OTHER | END 2019-01-05 11:03 | disposition home or self-care (01) | LOC: E/R 08:47 | DX: J45.20 Mild intermittent asthma, uncomplicated (principal) | CPT/HCPCS: 99283 ==

== ENCOUNTER 2019-01-05 18:38 | Emergency (ER) | payer OTHER ==
[2019-01-05] MEDS: ALBUTEROL 0.083% (NEB) 2.5 MG/3 ML AMP NEB (20:07)
[2019-01-05] MEDS: IPRATROPIUM (NEB) 0.5 MG/2.5 ML AMP NEB (20:07)
[2019-01-05] MEDS: predniSONE 20 MG TAB PO (20:59)
== END 2019-01-05 21:39 | disposition home or self-care (01) ==
LOC: E/R 18:38
DX: J45.21 Mild intermittent asthma with (acute) exacerbation (principal)
CPT/HCPCS: 94664; 99283-25

== ENCOUNTER 2019-01-13 09:15 | Emergency (ER) | payer OTHER ==
[2019-01-13] MEDS ORDERED: ALBUTEROL 0.083% (NEB) 2.5 MG/3 ML AMP NEB (10:12)
[2019-01-13] MEDS ORDERED: MAGNESIUM SULFATE 2 GM/50 ML 50 ML IVPB (10:12)
[2019-01-13] MEDS ORDERED: METHYLPREDNISOLONE 125 MG INJ IV (10:12)
[2019-01-13] MEDS ORDERED: IPRATROPIUM (NEB) 0.5 MG/2.5 ML AMP NEB (10:12)
[2019-01-13] MEDS ORDERED: SOD CHLORIDE 0.9% 500 ML IV (10:12)
[2019-01-13] MEDS: IPRATROPIUM (NEB) 0.5 MG/2.5 ML AMP INH (10:32)
[2019-01-13] MEDS: ALBUTEROL 0.5% (NEB) 2.5 MG/0.5 ML AMP INH (10:32)
[2019-01-13] MEDS: DEXAMETHASONE 10 MG/ML 1 ML INJ IM (11:12)
== END 2019-01-13 11:25 | disposition home or self-care (01) ==
LOC: FTE 09:15 → E/R 11:25
DX: J45.21 Mild intermittent asthma with (acute) exacerbation (principal); Z91.14 Patient's other noncompliance with medication regimen
CPT/HCPCS: 94644; 96372; 99284-25

== ENCOUNTER 2019-01-27 02:12 | Emergency (ER) | payer OTHER ==
[2019-01-27] MEDS: ALBUTEROL 0.083% (NEB) 2.5 MG/3 ML AMP NEB (02:59)
[2019-01-27] MEDS: IPRATROPIUM (NEB) 0.5 MG/2.5 ML AMP NEB (02:59)
== END 2019-01-27 03:45 | disposition home or self-care (01) ==
LOC: E/R 02:12
DX: J45.901 Unspecified asthma with (acute) exacerbation (principal)
CPT/HCPCS: 94664; 99283-25

== ENCOUNTER 2019-01-27 22:49 | Emergency (ER) | payer OTHER ==
[2019-01-27] MEDS: IPRATROPIUM (NEB) 0.5 MG/2.5 ML AMP NEB (23:00)
[2019-01-27] MEDS: ALBUTEROL 0.083% (NEB) 2.5 MG/3 ML AMP NEB (23:00)
== END 2019-01-27 23:50 | disposition home or self-care (01) ==
LOC: E/R 23:50
DX: J45.901 Unspecified asthma with (acute) exacerbation (principal)
CPT/HCPCS: 94664; 99283-25

== ENCOUNTER 2019-01-28 18:36 | Emergency (ER) | payer OTHER ==
[2019-01-28] MEDS ORDERED: ALBUTEROL 0.083% (NEB) 2.5 MG/3 ML AMP HHN (19:10)
[2019-01-28] MEDS: LEVALBUTEROL (NEB) 1.25 MG/0.5 ML AMP INH (19:49)
[2019-01-28] MEDS: IPRATROPIUM (NEB) 0.5 MG/2.5 ML AMP HHN (19:49)
== END 2019-01-28 21:30 | disposition home or self-care (01) ==
LOC: E/R 18:36
DX: J45.901 Unspecified asthma with (acute) exacerbation (principal); R40.2142 Coma scale, eyes open, spontaneous, at arrival to emergency department; R40.2252 Coma scale, best verbal response, oriented, at arrival to emergency department; R40.2362 Coma scale, best motor response, obeys commands, at arrival to emergency department; Z76.0 Encounter for issue of repeat prescription
CPT/HCPCS: 94644; 99283-25

== ENCOUNTER 2019-01-29 18:05 | Emergency (ER) | payer OTHER ==
[2019-01-29] MEDS: ALBUTEROL/IPRATROPIUM (NEB) 3 ML AMP HHN (18:40)
== END 2019-01-29 19:47 | disposition home or self-care (01) ==
LOC: FTE 18:05
DX: J45.901 Unspecified asthma with (acute) exacerbation (principal); Z76.0 Encounter for issue of repeat prescription
CPT/HCPCS: 94664; 99283-25

== ENCOUNTER 2019-01-30 02:43 | Emergency (ER) | payer OTHER ==
[2019-01-30] MEDS: ALBUTEROL 0.083% (NEB) 2.5 MG/3 ML AMP NEB (03:03)
[2019-01-30] MEDS: IPRATROPIUM (NEB) 0.5 MG/2.5 ML AMP NEB (03:03)
== END 2019-01-30 03:40 | disposition home or self-care (01) ==
LOC: E/R 02:43
DX: J45.901 Unspecified asthma with (acute) exacerbation (principal)
CPT/HCPCS: 94664; 99283-25

== ENCOUNTER 2019-01-30 15:11 | Emergency (ER) | payer OTHER ==
[2019-01-30] MEDS: ALBUTEROL/IPRATROPIUM (NEB) 3 ML AMP HHN (16:03)
[2019-01-30] MEDS: DEXAMETHASONE 10 MG/ML 1 ML INJ IM (16:29)
== END 2019-01-30 16:33 | disposition home or self-care (01) ==
LOC: E/R 15:11
DX: J45.901 Unspecified asthma with (acute) exacerbation (principal); R00.0 Tachycardia, unspecified; Z91.14 Patient's other noncompliance with medication regimen
CPT/HCPCS: 94664; 96372; 99284-25

== ENCOUNTER 2019-02-01 12:30 | Emergency (ER) | payer OTHER | END 2019-02-01 13:08 | disposition home or self-care (01) | LOC: E/R 12:30 | DX: J45.909 Unspecified asthma, uncomplicated (principal); Z76.0 Encounter for issue of repeat prescription | CPT/HCPCS: 99283; Z7502 ==

== ENCOUNTER 2019-02-01 19:46 | Emergency (ER) | payer OTHER ==
[2019-02-01] MEDS: ALBUTEROL 0.083% (NEB) 2.5 MG/3 ML AMP NEB (20:14)
== END 2019-02-01 22:28 | disposition home or self-care (01) ==
LOC: E/R 19:46
DX: R06.2 Wheezing (principal)
CPT/HCPCS: 94664; 99283-25

== ENCOUNTER 2019-02-10 05:25 | Emergency (ER) | payer OTHER ==
[2019-02-10] MEDS: ALBUTEROL/IPRATROPIUM (NEB) 3 ML AMP HHN (06:05)
== END 2019-02-10 07:21 | disposition home or self-care (01) ==
LOC: E/R 05:25
DX: J45.901 Unspecified asthma with (acute) exacerbation (principal)
CPT/HCPCS: 94664; 99283-25

== ENCOUNTER 2019-02-14 23:49 | Emergency (ER) | payer OTHER ==
[2019-02-15] MEDS: IPRATROPIUM (NEB) 0.5 MG/2.5 ML AMP NEB (00:11)
[2019-02-15] MEDS: ALBUTEROL 0.083% (NEB) 2.5 MG/3 ML AMP NEB (00:12)
[2019-02-15] MEDS: predniSONE 20 MG TAB PO (00:45)
== END 2019-02-15 00:51 | disposition home or self-care (01) ==
LOC: E/R 23:49
DX: J45.901 Unspecified asthma with (acute) exacerbation (principal)
CPT/HCPCS: 94664; 99284-25

== ENCOUNTER 2019-03-11 10:19 | Emergency (ER) | payer OTHER ==
[2019-03-11] MEDS: IPRATROPIUM (NEB) 0.5 MG/2.5 ML AMP NEB (10:54)
[2019-03-11] MEDS: ALBUTEROL 0.083% (NEB) 2.5 MG/3 ML AMP NEB (10:55)
== END 2019-03-11 11:12 | disposition home or self-care (01) ==
LOC: E/R 10:19
DX: J45.20 Mild intermittent asthma, uncomplicated (principal)
CPT/HCPCS: 94664; 99284-25

== ENCOUNTER 2019-03-25 00:14 | Emergency (ER) | payer OTHER ==
[2019-03-25] MEDS: IPRATROPIUM (NEB) 0.5 MG/2.5 ML AMP NEB (03:24)
[2019-03-25] MEDS: ALBUTEROL 0.083% (NEB) 2.5 MG/3 ML AMP NEB (03:24)
== END 2019-03-25 04:03 | disposition home or self-care (01) ==
LOC: E/R 00:14
DX: J45.41 Moderate persistent asthma with (acute) exacerbation (principal)
CPT/HCPCS: 94664; 99283-25

== ENCOUNTER 2019-04-05 04:12 | Emergency (ER) | payer OTHER ==
[2019-04-05] MEDS: ALBUTEROL 0.083% (NEB) 2.5 MG/3 ML AMP NEB (04:28)
== END 2019-04-05 05:10 | disposition home or self-care (01) ==
LOC: E/R 04:12
DX: J45.901 Unspecified asthma with (acute) exacerbation (principal)
CPT/HCPCS: 94664; 99283-25

== ENCOUNTER 2019-04-11 00:48 | Emergency (ER) | payer OTHER ==
[2019-04-11] MEDS: ALBUTEROL 0.083% (NEB) 2.5 MG/3 ML AMP INH (01:54)
[2019-04-11] MEDS: IPRATROPIUM (NEB) 0.5 MG/2.5 ML AMP INH (01:54)
[2019-04-11] MEDS: DEXAMETHASONE 10 MG/ML 1 ML INJ IM (02:26)
== END 2019-04-11 02:36 | disposition home or self-care (01) ==
LOC: E/R 00:48
DX: J45.21 Mild intermittent asthma with (acute) exacerbation (principal); Z91.14 Patient's other noncompliance with medication regimen
CPT/HCPCS: 94664; 96372; 99284-25

== ENCOUNTER 2019-04-11 22:46 | Emergency (ER) | payer OTHER ==
[2019-04-11] MEDS: ALBUTEROL/IPRATROPIUM (NEB) 3 ML AMP HHN (23:16)
== END 2019-04-11 23:23 | disposition home or self-care (01) ==
LOC: E/R 22:46
DX: J45.21 Mild intermittent asthma with (acute) exacerbation (principal); Z91.14 Patient's other noncompliance with medication regimen
CPT/HCPCS: 94664; 99283-25

== ENCOUNTER 2019-04-12 15:45 | Emergency (ER) | payer OTHER ==
[2019-04-12] MEDS: ALBUTEROL 0.083% (NEB) 2.5 MG/3 ML AMP NEB (16:59)
[2019-04-12] MEDS: IPRATROPIUM (NEB) 0.5 MG/2.5 ML AMP NEB (16:59)
[2019-04-12] MEDS: predniSONE 20 MG TAB PO (17:32)
== END 2019-04-12 18:30 | disposition home or self-care (01) ==
LOC: E/R 15:45
DX: J45.21 Mild intermittent asthma with (acute) exacerbation (principal)
CPT/HCPCS: 94664; 99283-25

== ENCOUNTER 2019-04-13 22:43 | Emergency (ER) | payer OTHER ==
[2019-04-13] MEDS: ALBUTEROL 0.5% (NEB) 2.5 MG/0.5 ML AMP INH (23:09)
== END 2019-04-13 23:44 | disposition home or self-care (01) ==
LOC: E/R 22:43
DX: J45.901 Unspecified asthma with (acute) exacerbation (principal); F41.9 Anxiety disorder, unspecified
CPT/HCPCS: 94644; 99283-25

== ENCOUNTER 2019-04-20 23:28 | Emergency (ER) | payer OTHER ==
[2019-04-21] MEDS: IPRATROPIUM (NEB) 0.5 MG/2.5 ML AMP INH (00:31)
[2019-04-21] MEDS: ALBUTEROL 0.083% (NEB) 2.5 MG/3 ML AMP INH (00:31)
== END 2019-04-21 01:04 | disposition home or self-care (01) ==
LOC: E/R 23:28
DX: J45.21 Mild intermittent asthma with (acute) exacerbation (principal); Z91.14 Patient's other noncompliance with medication regimen
CPT/HCPCS: 94644; 99283-25

== ENCOUNTER 2019-04-21 10:51 | Emergency (ER) | payer OTHER | END 2019-04-21 11:08 | disposition home or self-care (01) | LOC: E/R 10:51 | DX: J45.901 Unspecified asthma with (acute) exacerbation (principal); F41.9 Anxiety disorder, unspecified; Z76.0 Encounter for issue of repeat prescription | CPT/HCPCS: 99281; Z7502 ==

== ENCOUNTER 2019-04-21 22:16 | Emergency (ER) | payer OTHER ==
[2019-04-21] MEDS: IPRATROPIUM (NEB) 0.5 MG/2.5 ML AMP NEB (23:27)
[2019-04-21] MEDS: ALBUTEROL 0.083% (NEB) 2.5 MG/3 ML AMP NEB (23:27)
== END 2019-04-22 | disposition home or self-care (01) ==
LOC: E/R 04-22
DX: J45.41 Moderate persistent asthma with (acute) exacerbation (principal)
CPT/HCPCS: 94664; 99283-25

== ENCOUNTER 2019-04-22 12:38 | Emergency (ER) | payer OTHER ==
[2019-04-22] MEDS: ALBUTEROL 0.083% (NEB) 2.5 MG/3 ML AMP HHN (13:32)
== END 2019-04-22 14:03 | disposition home or self-care (01) ==
LOC: E/R 12:38
DX: J45.901 Unspecified asthma with (acute) exacerbation (principal)
CPT/HCPCS: 94664; 99283-25

== ENCOUNTER 2019-04-27 23:09 | Emergency (ER) | payer OTHER | END 2019-04-27 23:30 | disposition home or self-care (01) | LOC: E/R 23:09 | DX: J45.901 Unspecified asthma with (acute) exacerbation (principal) | CPT/HCPCS: 99283; Z7502 ==

== ENCOUNTER 2019-04-28 22:08 | Emergency (ER) | payer OTHER | END 2019-04-28 22:43 | disposition home or self-care (01) | LOC: E/R 22:08 | DX: R06.02 Shortness of breath (principal); J45.909 Unspecified asthma, uncomplicated | CPT/HCPCS: 99283; Z7502 ==

== ENCOUNTER 2019-07-03 05:52 | Emergency (ER) | payer OTHER | END 2019-07-03 07:39 | disposition home or self-care (01) | LOC: E/R 05:52 | DX: J45.21 Mild intermittent asthma with (acute) exacerbation (principal) | CPT/HCPCS: 99282; Z7502 ==